=== PATIENT | male | born 1980 | race Two or more races ===

== ENCOUNTER 2020-10-25 13:05 | Outpatient (REF) | payer BC, SELFPAY | END 2020-10-25 13:06 | disposition home or self-care (01) | LOC: HO.LAB 13:05 | PROVIDERS: Visit Provider Internal Medicine | DX: Z20.828 Contact with and (suspected) exposure to other viral communicable diseases (principal) | CPT/HCPCS: C9803; U0003 ==

== ENCOUNTER 2023-05-09 13:30 | Emergency (ER) | payer BC, SELFPAY ==
--- NOTE | ~2023-05-09 | CT_ITS ---
EXAMINATION: CT ABDOMEN AND PELVIS WITHOUT CONTRAST CLINICAL INFORMATION: Left costovertebral angle tenderness COMPARISON: None available. TECHNIQUE: Multidetector volumetric imaging was performed from the superior aspect of the liver through the pubic symphysis. Sagittal and coronal reformatted images were obtained on the technologist's workstation. This CT examination was performed using dose optimization techniques as appropriate, variously including the following: *Automated exposure control *Adjustment of mA and/or kV according to patient size (this includes techniques or standardized protocols for targeted exams where dose is matched to indication/reason for exam; i.e. extremities or head) *Use of iterative reconstruction technique DLP: 844 mGy-cm FINDINGS: LUNG BASES: The visualized lung bases are unremarkable. LIVER, GALLBLADDER, AND BILIARY TREE: Hepatic fatty infiltration with focal fatty sparing near the gallbladder fossa. The gallbladder is unremarkable with no evidence of radiopaque gallstones, gallbladder wall thickening, or obvious pericholecystic inflammatory changes. PANCREAS: Unremarkable. SPLEEN: Unremarkable. ADRENAL GLANDS: Unremarkable. KIDNEYS AND URETERS: Multiple bilateral renal stones. Left hydroureteronephrosis and perinephric/periureteral infiltration secondary to a left distal ureteral/UVJ stone measuring 5 mm. BLADDER: Unremarkable. GASTROINTESTINAL TRACT: Distal ileum and appendix. No colonic inflammatory changes. Small hiatal hernia. No small bowel obstructive process or abnormal omental thickening. ABDOMINAL WALL: Small fatty inguinal hernias. Small fatty umbilical hernia. LYMPH NODES: Small periportal and retroperitoneal nodes without suspicious enlargement. VASCULAR: Unremarkable. PELVIC VISCERA: Unremarkable. OSSEOUS STRUCTURES: No compression fractures. Facet arthrosis. Minimal spondylitic change. Scattered sclerotic foci of bone, largest in the medial right ilium at 2 cm possibly reflecting bone islands. CT/CT abdomen pelvis wo IV con IMPRESSION: Left-sided obstructive uropathy, secondary to distal left ureteral/UVJ stone. Bilateral nephrolithiasis. Other incidental findings as noted above.
[2023-05-09 14:03] VITALS: BP 152/88; PULSE 70; RESP 16; TEMP 36.6; O2SAT 98; BMI 31.6
--- NOTE | 2023-05-09 14:03 | ED.ABDPAIN ---
HPI - Abdominal Pain General Chief Complaint: Abdominal Pain Stated Complaint: Stomach Pain Time Seen by Provider: 05/09/23 16:33 Source: patient Mode of arrival: ambulatory Limitations: no limitations History of Present Illness HPI narrative: 42 yo male with no know past medical history presents to the ER with L abdominal pain radiating to L back w/urinary retention that started at 6 am. He reported that his pain was an 8/10. He reports urinating at around 1-1:30pm and reports that his pain had decreased. He stated that he was nauseous prior to arrival but has subsided. MD elicited complaint: abdominal pain and flank pain Pertinent past history: none Onset (ago): hour(s) Pain Consistency: constant Location: none Severity: moderate Quality: stabbing and sharp Radiation: LUQ and L flank Migration to: L flank Exacerbating factors: nothing Relieving factors: nothing Associated symptoms: nausea Treatments prior to arrival: NSAIDs Related Data Previous Rx's Medication Instructions Recorded naproxen 500 mg tablet 500 mg PO BID PRN pain #20 tabs 05/09/23 tamsulosin 0.4 mg capsule (Flomax) 0.4 mg PO DAILY #14 caps 05/09/23 Allergies Allergy/AdvReac Type Severity Reaction Status Date / Time No Known Allergies Allergy Unverified 08/05/20 17:10 Review of Systems Review of Systems Yes all other systems are reviewed and are negative [facility] Social History Social History Smoked in Last 30 Days: Yes Use of substances other than those prescribed or required for medical reasons: No Advance Directives: No Advance Directives Information Provided: Yes Physical Exam ED Vital Signs: Vital Signs - 24 hr 05/09/23 14:03 05/09/23 17:36 Temperature 97.9 F 98.2 F Pulse Rate 70 63 Respiratory Rate 16 16 Blood Pressure 152/88 H 145/90 H Pulse Oximetry 98 97 Oxygen Delivery Method Room Air Room Air BMI result Body Mass Index 31.6 Appearance: Alert. Oriented X3. No acute distress. Head: normocephalic, atraumatic. Eyes: Pupils equal, round and reactive to light. ENT: Pharynx normal. No tonsillar swelling or exudate. Neck: Normal inspection. Neck supple. CVS: Normal heart rate and rhythm. Pulses normal. Respiratory: No respiratory distress. Breath sounds normal. Abdomen: Soft and nontender. +BS x4. Left CVA tenderness Skin: Skin warm and dry. Normal skin color. Normal skin turgor. No rashes. Extremities: No lower extremity edema. No joint swelling. Neuro/psych: Oriented X 3. No motor deficit. No sensory deficit. CN II-XII intact. Normal speech and cognition. Course Course Course Narrative: RME: 42yo M w/no sig PMHx c/o L abdominal pain radiating to L back w/urinary retention/decreased urge & nausea x last night. denies fever, emesis +L CVAT and LUQ ttp, no rebound/guarding Labs, UA, CTAP ordered Full HPI, ROS and PE to be performed by primary ED provider. Medical Decision Making Medical Decision Making [facility] Narrative: 42 yo male with no know past medical history presents to the ER with L abdominal pain radiating to L back w/urinary retention that started at 6 am. Physical exam demonstrated CVA tenderness on the left flank on first evaluation with LUQ tenderness. He reports urinating at around [id number] and reports his pain has decreased. CT scan demonstrated bilateral nephrolithiasis with a 5 mm stone at the left distal ureteral/UVJ. Plan to give IV fluids, analgesics, and prednisone for inflammation. 18:65 - upon re-evaluation patient's symptoms completely resolved. he most likely passed the stone in the ER. will d/c home with flomax and PRN naproxen along w/ urology follow up. results, dx and tx d/w patient and all questions were answered Differential Diagnosis Differential Diagnoses: The differential diagnosis associated with the presentation includes nephrolithiasis, pyelonephritis, diverticulitis, obstructive uropathy Admission/Observation Consideration of admission/observation: Escalation of care including admission/observation considered considered admission given size w/ hydro, decreased UOP however patients symptoms improved and he was able to urinate, likely passed the stone Lab Data [facility] Lab Attestation statement: I reviewed the patient's lab results. Labs demonstrates mild leukocytosis with left shit. 05/09/23 14:33 05/09/23 14:33 Labs: Lab Results 05/09/23 05/09/23 05/09/23 Range/Units 14:33 14:33 17:42 WBC 11.8 H (4.8-10.8) X10*3/uL RBC 5.67 (4.60-5.80) X10*6/uL Hgb 16.6 (14.0-18.0) g/dl Hct 49.4 (42.0-52.0) % MCV 87.1 (80.0-98.0) fL MCH 29.3 (27.0-33.0) pg MCHC 33.6 (31.0-36.0) g/dl RDW 12.5 (11.0-16.0) % Plt Count 188 (160-400) X10*3/uL MPV 10.7 (9.4-12.4) fL Immature Gran % (Auto) 0.3 (0.0-0.4) % Neut % (Auto) 86.1 H (45-73) % Lymph % (Auto) 9.2 L (20-40) % [place] % (Auto) 4.1 (2-11) % Eos % (Auto) 0.2 (0-4) % Baso % (Auto) 0.1 (0-2) % Lymph # (Auto) 1.1 L (1.2-4.9) X10*3/uL [place] # (Auto) 0.5 (0.1-1.2) X10*3/uL Eos # (Auto) 0.0 (0.0-0.4) X10*3/uL Baso # (Auto) 0.0 (0.0-0.2) X10*3/uL Abs Immat Gran (auto) 0.04 H (0.00-0.03) X10*3/uL Absolute Neuts (auto) 10.1 H (2.0-8.3) x10*3/uL Absolute Nucleated RBC 0.000 (0.0-0.012) X10*3/uL Nucleated RBC % (auto) 0.0 (0.0-0.2) /100WBC Sodium 143 (135-145) mmol/L Potassium 4.3 (3.3-5.1) mmol/L Chloride 107 (96-108) mmol/L Carbon Dioxide 26 (22-29) mmol/L Anion Gap 14 (12-20) BUN 11 (9-16) mg/dL Creatinine 1.00 (0.5-1.4) mg/dL Estim Creat Clear Calc 116.3 Estimated GFR > 60 Random Glucose 118 H (60-115) mg/dL Calcium 10.1 (8.4-10.2) mg/dL Magnesium 1.9 (1.6-2.6) mg/dL Total Bilirubin 1.6 H (0.0-1.0) mg/dL Direct Bilirubin 0.4 (0.0-0.5) mg/dL AST 38 H (5-37) U/L ALT 54 H (0-40) U/L Alkaline Phosphatase 110 (39-117) U/L Total Protein 8.8 H (6.5-8.0) g/dL Albumin 4.9 (3.5-5.0) g/dL Lipase 60 (8-78) U/L Urine Color Yellow Urine Appearance Clear Urine pH 5.5 (5.0-9.0) Ur Specific [place] 1.020 (1.005-1.025) Urine Protein Trace (Neg-Trace) mg/dL Urine Glucose (UA) Negative (Negative) mg/dL Urine Ketones Trace (Negative) mg/dL Urine Blood Moderate (2+) H (Negative) Urine Nitrite Negative (Negative) Ur Leukocyte Esterase Small (1+) H (Negative) Urine RBC 3-5 H (0-2) /HPF Urine WBC 6-10 H (0-5) /HPF Ur Squamous Epith Cells 0-2 (0-2) /HPF Urine Bacteria None Seen (None Seen) Hyaline Casts 6-10 (0-2) /LPF Independent Interpretation I performed an independent interpretation of an: CT Scan Interpretation: I have reviewed the CT scan and agree with the radiologist reading. Radiology Impression Radiologist Impression: CT/CT abdomen pelvis wo IV con IMPRESSION: Left-sided obstructive uropathy, secondary to distal left ureteral/UVJ stone. Bilateral nephrolithiasis. KIDNEYS AND URETERS: Multiple bilateral renal stones. Left hydroureteronephrosis and perinephric/periureteral infiltration secondary to a left distal ureteral/UVJ stone measuring 5 mm. Prescription Management I considered prescription management with: Pain Medication and Other (alpha marco) Medications Administered Discontinued Medications Generic Name Dose Route Start Last Admin Trade Name Freq PRN Reason Stop Dose Admin Sodium Chloride 1,000 mls @ 999 mls/hr 05/09/23 16:45 05/09/23 17:30 Ns IVCONT 05/09/23 17:45 999 mls/hr .Q1H1M ONI Administration Ketorolac Tromethamine 30 mg 05/09/23 16:35 05/09/23 17:34 Ketorolac Tromethamine 30 Mg/Ml Vial IVPUSH 05/09/23 16:36 30 mg ONCE ONE Administration Prednisone 40 mg 05/09/23 16:35 05/09/23 17:33 Prednisone 20 Mg Tablet PO 05/09/23 16:36 40 mg ONCE ONE Administration Tamsulosin HCl 0.4 mg 05/09/23 16:35 05/09/23 17:33 Tamsulosin Hcl 0.4 Mg Capsule PO 05/09/23 16:36 0.4 mg ONCE ONE Administration Critical Care Time Critical Care Time Critical Care Time: No Discharge Plan Discharge Clinical Impression: Hydronephrosis with ureteral calculus Patient Disposition: Home, Self-Care Instructions: Ureteral Stones (ED) Additional Instructions: Your CT scan today showed kidney stones - you most likely already passes the stone that was causing your pain Take the prescribed medications as directed Follow up with Urology - call for an appointment, name and number below Drink plenty of fluids If you develop new or worsening symptoms call 911 or come back to the ER for further evaluation. Prescriptions: New naproxen 500 mg tablet 500 mg PO BID PRN (Reason: pain) Qty: 20 0RF tamsulosin [Flomax] 0.4 mg capsule 0.4 mg PO DAILY Qty: 14 0RF Referrals: [facility] [Provider Group] (CT/CT abdomen pelvis wo IV con IMPRESSION: Left-sided obstructive uropathy, secondary to distal left ureteral/UVJ stone. Bilateral nephrolithiasis.)
[2023-05-09 14:38] LABS: MANUAL DIFF FLAG NO
[2023-05-09 14:43] LABS: Basophils Percent Auto 0.1 % (0-2); Eosinophils Percent Auto 0.2 % (0-4); Hematocrit 49.4 % (42.0-52.0); Hemoglobin 16.6 g/dl (14.0-18.0); Imm Gran Abs Auto 0.04 X10*3/uL (0.00-0.03); Imm Gran Pct Auto 0.3 % (0.0-0.4); Lymphocytes Absolute Auto 1.1 X10*3/uL (1.2-4.9); Lymphocytes Percent Auto 9.2 % (20-40); Mean Corpuscular HGB Conc 33.6 g/dl (31.0-36.0); Mean Corpuscular Hemoglobin 29.3 pg (27.0-33.0); Mean Corpuscular Volume 87.1 fL (80.0-98.0); Mean Platelet Volume 10.7 fL (9.4-12.4); Monocytes Absolute Auto 0.5 X10*3/uL (0.1-1.2); Monocytes Percent Auto 4.1 % (2-11); Neutrophils Absolute Auto 10.1 x10*3/uL (2.0-8.3); Neutrophils Percent Auto 86.1 % (45-73); Platelet Count 188 X10*3/uL (160-400); Red Blood Count 5.67 X10*6/uL (4.60-5.80); Red Cell Distribution Width 12.5 % (11.0-16.0); White Blood Count 11.8 X10*3/uL (4.8-10.8)
[2023-05-09 15:00] LABS: Alanine Aminotransferase 54 U/L (0-40); Albumin Level 4.9 g/dL (3.5-5.0); Alkaline Phosphatase 110 U/L (39-117); Anion Gap 14 (12-20); Aspartate Amino Transferase 38 U/L (5-37); Bilirubin Direct 0.4 mg/dL (0.0-0.5); Bilirubin Total 1.6 mg/dL (0.0-1.0); Blood Urea Nitrogen 11 mg/dL (9-16); Calcium 10.1 mg/dL (8.4-10.2); Carbon Dioxide 26 mmol/L (22-29); Chloride 107 mmol/L (96-108); Creatinine Clr Calc Pharmacy 116.3; Estimated Glomerular Filt Rate > 60; Glucose Random 118 mg/dL (60-115); Lipase 60 U/L (8-78); Magnesium 1.9 mg/dL (1.6-2.6); Potassium 4.3 mmol/L (3.3-5.1); Sodium 143 mmol/L (135-145); Total Protein 8.8 g/dL (6.5-8.0)
[2023-05-09] MEDS: 0.9 % Sodium Chloride 1,000 ML 999 ML IVCONT (17:30)
[2023-05-09] MEDS: Tamsulosin HCL 0.4 MG CAPSULE PO (17:33)
[2023-05-09] MEDS: predniSONE 20 MG TABLET 40 MG PO (17:33)
[2023-05-09] MEDS: Ketorolac Tromethamine 30 MG/ML VIAL IVPUSH (17:34)
[2023-05-09 17:36] VITALS: BP 145/90; PULSE 63; RESP 16; TEMP 36.8; O2SAT 97
[2023-05-09 17:52] LABS: Appearance Urine Clear; Color Urine Yellow; Glucose Urine UA Negative (Negative); Leukocyte Esterase Urine Small (1+) (Negative); Nitrite Urine Negative (Negative); PH 5.5 (5.0-9.0); UMIC TRIGGER UACC YES; Urine Blood Moderate (2+) (Negative); Urine Ketones Trace mg/dL (Negative); Urine Protein Trace mg/dL (Neg-Trace)
[2023-05-09 18:33] LABS: Bacteria Urine None Seen (None Seen); Squamous Epithelial Cell Urine 0-2 /HPF (0-2); UACC Culture Trigger YES
[2023-05-09 18:52] VITALS: BP 154/84; PULSE 69; RESP 16; TEMP 36.7; O2SAT 95
== END 2023-05-09 19:11 | disposition home or self-care (01) ==
PROVIDERS: Physician Assistant; Emergency Provider Emergency Medicine Emergency Medical Services
DX: N13.2 Hydronephrosis with renal and ureteral calculous obstruction (principal)
CPT/HCPCS: 36415; 51798; 74176; 80048; 80076; 81001; 83690; 83735; 85025; 87086; 96361; 96374; 99284; J1885

== ENCOUNTER 2023-05-12 05:16 | Emergency (ER) | payer BC, SELFPAY ==
[2023-05-12 05:29] VITALS: BP 141/80; PULSE 79; RESP 16; TEMP 37; O2SAT 97; BMI 31.6
[2023-05-12 05:49] LABS: Basophils Percent Auto 0.1 % (0-2); Eosinophils Percent Auto 0.2 % (0-4); Hematocrit 43.5 % (42.0-52.0); Hemoglobin 14.7 g/dl (14.0-18.0); Imm Gran Abs Auto 0.02 X10*3/uL (0.00-0.03); Imm Gran Pct Auto 0.2 % (0.0-0.4); Lymphocytes Percent Auto 8.8 % (20-40); MANUAL DIFF FLAG NO; Mean Corpuscular HGB Conc 33.8 g/dl (31.0-36.0); Mean Corpuscular Hemoglobin 29.4 pg (27.0-33.0); Mean Platelet Volume 10.6 fL (9.4-12.4); Monocytes Absolute Auto 0.9 X10*3/uL (0.1-1.2); Monocytes Percent Auto 7.4 % (2-11); Neutrophils Absolute Auto 9.7 x10*3/uL (2.0-8.3); Neutrophils Percent Auto 83.3 % (45-73); Platelet Count 165 X10*3/uL (160-400); Red Cell Distribution Width 12.5 % (11.0-16.0); White Blood Count 11.6 X10*3/uL (4.8-10.8)
[2023-05-12 06:02] LABS: Anion Gap 13 (12-20); Blood Urea Nitrogen 14 mg/dL (9-16); Calcium 9.5 mg/dL (8.4-10.2); Carbon Dioxide 28 mmol/L (22-29); Chloride 107 mmol/L (96-108); Creatinine Clr Calc Pharmacy 96.8; Estimated Glomerular Filt Rate > 60; Glucose Random 135 mg/dL (60-115); Potassium 3.8 mmol/L (3.3-5.1); Sodium 144 mmol/L (135-145)
--- NOTE | 2023-05-12 07:15 | ED.ABDPAIN ---
HPI - Abdominal Pain General Chief Complaint: Abdominal Pain Stated Complaint: Kidney Stones? Time Seen by Provider: 05/12/23 07:10 Source: patient Mode of arrival: ambulatory Limitations: no limitations History of Present Illness HPI narrative: 6-year-old male with no known past medical history presented to ED for evaluation of left lower quadrant abdominal pain the pain started 3 days ago pain is constant but waxes and weans mostly to the left lower quadrant area radiates to rid the left flank area, patient was seen in the emergency department 3 days ago and diagnosed with 5 mm stone in the left distal ureter patient was sent home on naproxen and Flomax patient has an appointment with urologist in a few weeks returned today for worsening of the pain and vomiting several times before coming to the ED. No fever, no chills. Related Data Previous Rx's Medication Instructions Recorded naproxen 500 mg tablet 500 mg PO BID PRN pain #20 tabs 05/09/23 tamsulosin 0.4 mg capsule (Flomax) 0.4 mg PO DAILY #14 caps 05/09/23 levofloxacin 750 mg tablet 750 mg PO DAILY #7 tabs 05/12/23 oxycodone 5 mg tablet 5 mg PO BID PRN pain #10 tabs 05/12/23 prednisone 20 mg tablet 20 mg PO BID #10 tabs 05/12/23 Allergies Allergy/AdvReac Type Severity Reaction Status Date / Time No Known Allergies Allergy Unverified 08/05/20 17:10 Review of Systems Review of Systems All other systems are reviewed and are negative Constitutional: Reports as per HPI and Reports no additional constitutional complaints Eyes: Reports as per HPI and Reports no additional eye complaints Reports system reviewed and no additional complaints, except as documented Cardiovascular: Reports as per HPI and Reports no additional cardiovascular complaints Respiratory: Reports as per HPI and Reports no additional respiratory complaints Gastrointestinal: Reports as per HPI and Reports no additional gastrointestinal complaints Genitourinary: Reports no additional female genitourinary complaints Musculoskeletal: Reports no additional musculoskeletal complaints Skin/Breast: Reports system reviewed and no additional complaints, except as docu Psychiatric: Reports no additional psychiatric complaints Endocrine: Reports no additional endocrine complaints Hematologic/Lymphatic: Reports no additional hematologic/lymphatic complaints Allergic/Immunologic: Reports no additional allergic/immunologic complaints Reports system reviewed and no additional complaints, except as documented and Reports Abnormal speech present [facility] Social History Social History Advance Directives: No Advance Directives Information Provided: No Physical Exam ED Vital Signs: Vital Signs - 24 hr 05/12/23 05:29 05/12/23 08:34 05/12/23 10:07 Temperature 98.6 F 98.0 F 97.9 F Pulse Rate 79 79 73 Respiratory Rate 16 16 16 Blood Pressure 141/80 H 136/77 135/85 Pulse Oximetry 97 97 97 Oxygen Delivery Method Room Air Room Air Room Air BMI result Body Mass Index 31.6 Vital signs have been reviewed as appeared to be correct. Blood pressure normal. Heart rate normal. Respiration rate normal. Temperature normal. Oxygen saturation normal. Appearance: Alert. Oriented X3. No acute distress. Head: Normal external exam. Normocephalic. Atraumatic. No Yan signs noted. No raccoon eyes noted Eyes: PERRLA. EOMI. Conjunctiva and sclera normal. Eyelids normal. ENT: TM's Normal. Pharynx normal. Uvula midline. Moist mucous membranes. No trismus noted. No drooling noted. No muffled voice noted. Neck: Normal inspection. Neck supple. FROM. No adenopathy. Thyroid Normal. No meningeal signs. No neck mass noted. CVS: Normal heart rate and rhythm. Heart sound normal. No murmurs noted. Pulses normal throughout. Respiratory: No respiratory distress. Painless inspiration. Breath sounds normal. No wheezes/rales/rhonchi noted. Chest nontender. No accessory muscle usage noted or decreased air movement noted. Abdomen: Left lower quadrant tenderness, no guarding, no rebound tenderness. Bowel sounds normal in all 4 quadrants. No distention noted. No organomegaly noted. No visible injury noted. Back: L CVA tenderness. Full range of motion noted. Skin: Skin warm and dry. Normal skin color. Normal skin turgor. No rashes/lesions/lacerations noted. Extremities: No lower extremity edema. Extremities exhibit normal range of motion. Extremities nontender. Neuro: Oriented X 3. Cranial nerve exam: II-XII are grossly intact No motor deficit. No sensory deficit. Reflexes normal. Course Course Course Narrative: 42-year-old male with a 5 mm left UVJ. Naproxen is not helping patient's pain patient was given oxycodone in the ED which is helping the pain, will start the patient on short course of prednisone to help patient's symptoms, continue with Flomax, start the patient on antibiotic for UTI. Medical Decision Making Differential Diagnosis Differential Diagnoses: The differential diagnosis associated with the presentation includes (UTI, pain control, electrolyte abnormalities, renal insufficiency, severe anemia.) Admission/Observation Consideration of admission/observation: Escalation of care including admission/observation considered Lab Data MDM Lab Attestation statement: I reviewed the patient's lab results. 05/12/23 05:44 05/12/23 05:44 Labs: Lab Results 05/12/23 05/12/23 05/12/23 Range/Units 05:44 05:44 08:37 WBC 11.6 H (4.8-10.8) X10*3/uL RBC 5.00 (4.60-5.80) X10*6/uL Hgb 14.7 (14.0-18.0) g/dl Hct 43.5 (42.0-52.0) % MCV 87.0 (80.0-98.0) fL MCH 29.4 (27.0-33.0) pg MCHC 33.8 (31.0-36.0) g/dl RDW 12.5 (11.0-16.0) % Plt Count 165 (160-400) X10*3/uL MPV 10.6 (9.4-12.4) fL Immature Gran % (Auto) 0.2 (0.0-0.4) % Neut % (Auto) 83.3 H (45-73) % Lymph % (Auto) 8.8 L (20-40) % [place] % (Auto) 7.4 (2-11) % Eos % (Auto) 0.2 (0-4) % Baso % (Auto) 0.1 (0-2) % Lymph # (Auto) 1.0 L (1.2-4.9) X10*3/uL [place] # (Auto) 0.9 (0.1-1.2) X10*3/uL Eos # (Auto) 0.0 (0.0-0.4) X10*3/uL Baso # (Auto) 0.0 (0.0-0.2) X10*3/uL Abs Immat Gran (auto) 0.02 (0.00-0.03) X10*3/uL Absolute Neuts (auto) 9.7 H (2.0-8.3) x10*3/uL Absolute Nucleated RBC 0.000 (0.0-0.012) X10*3/uL Nucleated RBC % (auto) 0.0 (0.0-0.2) /100WBC Sodium 144 (135-145) mmol/L Potassium 3.8 (3.3-5.1) mmol/L Chloride 107 (96-108) mmol/L Carbon Dioxide 28 (22-29) mmol/L Anion Gap 13 (12-20) BUN 14 (9-16) mg/dL Creatinine 1.20 (0.5-1.4) mg/dL Estim Creat Clear Calc 96.8 Estimated GFR > 60 Random Glucose 135 H (60-115) mg/dL Calcium 9.5 (8.4-10.2) mg/dL Urine Color Yellow Urine Appearance Cloudy Urine pH 6.0 (5.0-9.0) Ur Specific [place] 1.025 (1.005-1.025) Urine Protein 30 (1+) H (Neg-Trace) mg/dL Urine Glucose (UA) Negative (Negative) mg/dL Urine Ketones Trace (Negative) mg/dL Urine Blood Large (3+) H (Negative) Urine Nitrite Negative (Negative) Ur Leukocyte Esterase Moderate (2+) H (Negative) Urine RBC 6-10 H (0-2) /HPF Urine WBC 21-50 H (0-5) /HPF Ur Squamous Epith Cells 0-2 (0-2) /HPF Urine Bacteria Trace (None Seen) Hyaline Casts 3-5 (0-2) /LPF Medications Administered Discontinued Medications Generic Name Dose Route Start Last Admin Trade Name Freq PRN Reason Stop Dose Admin Levofloxacin 750 mg 05/12/23 09:19 05/12/23 10:10 Levofloxacin 750 Mg Tablet PO 05/12/23 09:20 750 mg ONCE ONE Administration Ondansetron HCl 4 mg 05/12/23 07:21 05/12/23 10:09 Ondansetron Odt 4 Mg Tab.Rapdis TRANSLINGU 05/12/23 07:22 4 mg ONCE ONE Administration Oxycodone HCl 5 mg 05/12/23 07:21 05/12/23 10:09 Oxycodone Hcl Immed Release 5 Mg Tablet PO 05/12/23 07:22 5 mg ONCE ONE Administration Prednisone 40 mg 05/12/23 07:21 05/12/23 10:10 Prednisone 20 Mg Tablet PO 05/12/23 07:22 40 mg ONCE ONE Administration Discharge Plan Discharge Clinical Impression: Calculus of kidney, Renal colic Patient Disposition: Home, Self-Care Instructions: Renal Colic (ED) Prescriptions: New oxycodone 5 mg tablet 5 mg PO BID PRN (Reason: pain) Qty: 10 0RF Rx Instructions: Partial Fill upon patient request. prednisone 20 mg tablet 20 mg PO BID Qty: 10 0RF levofloxacin 750 mg tablet 750 mg PO DAILY Qty: 7 0RF No Action naproxen 500 mg tablet 500 mg PO BID PRN (Reason: pain) Qty: 20 0RF tamsulosin [Flomax] 0.4 mg capsule 0.4 mg PO DAILY Qty: 14 0RF Referrals: Onur Mcfadden MD [Physician] -
[2023-05-12 08:34] VITALS: BP 136/77; PULSE 79; RESP 16; TEMP 36.7; O2SAT 97
[2023-05-12 08:43] LABS: Appearance Urine Cloudy; Color Urine Yellow; Glucose Urine UA Negative (Negative); Leukocyte Esterase Urine Moderate (2+) (Negative); Nitrite Urine Negative (Negative); Specific Gravity - Urine 1.025 (1.005-1.025); UMIC TRIGGER UACC YES; Urine Blood Large (3+) (Negative); Urine Ketones Trace mg/dL (Negative); Urine Protein 30 (1+) mg/dL (Neg-Trace)
[2023-05-12 08:51] LABS: Bacteria Urine Trace (None Seen); Squamous Epithelial Cell Urine 0-2 /HPF (0-2); UACC Culture Trigger YES; WBC Urine 21-50 /HPF (0-5)
[2023-05-12 10:07] VITALS: BP 135/85; PULSE 73; RESP 16; TEMP 36.6; O2SAT 97
[2023-05-12] MEDS: Ondansetron ODT 4 MG TAB.RAPDIS TRANSLINGU (10:09)
[2023-05-12] MEDS: oxyCODONE HCl Immed Release 5 MG TABLET PO (10:09)
[2023-05-12] MEDS: levoFLOXacin 750 MG TABLET PO (10:10)
[2023-05-12] MEDS: predniSONE 20 MG TABLET 40 MG PO (10:10)
== END 2023-05-12 11:52 | disposition home or self-care (01) ==
PROVIDERS: Emergency Provider Emergency Medicine
DX: N20.0 Calculus of kidney (principal); N23 Unspecified renal colic; Z79.899 Other long term (current) drug therapy
CPT/HCPCS: 36415; 80048; 81001; 85025; 87086; 99283

== ENCOUNTER 2023-06-08 09:51 | Outpatient (AMB) | payer BC, SELFPAY ==
--- NOTE | 2023-06-08 09:52 | MHC.OFFVIS ---
Intake Intake Visit Reasons: nephrolithiasis Intake Note: New Patient presents for nephrolithiasis Urology Medications: none Blood Thinner: none Event Staff Required: No Accompanied by: Self / Same As Patient Allergies No Known Allergies Allergy (Unverified 06/08/23 10:26) Medication List - Last Reconciled 06/08/23 by SKIP Amanda pyridoxine (vitamin B6) 100 mg PO DAILY 90 days HPI HPI Comments History of Present Illness Details Terence is a very pleasant 43-year-old male patient of Dr. Parada. He presents to the office today as a new patient for nephrolithiasis. In discussion with the patient today he reports seeking emergency room care approximately 1 month ago for left-sided flank pain radiating to his abdomen. In review of patient's chart it appears CT was obtained and these results reviewed with the patient today. Multiple bilateral renal stones. Left hydroureteronephrosis and perinephric/periureteral infiltration secondary to a left distal ureteral/UVJ stone measuring 5 mm. The bladder is unremarkable. When asked patient reports pain has since subsided. He reports pain had subsided approximately 1 week after ER visit. He reports having urinated more than one stone however did not obtain them. He denies any previous history of nephrolithiasis. He denies urinary urgency, urinary frequency, incontinence, nocturia, hematuria, dysuria, foul smelling urine, changes to urinary stream, flank pain, fever, and or chills. He is happy with his current voiding parameters. In office urinalysis results reviewed with the patient today. Microscopic hematuria noted. Discussed potential causes for microscopic hematuria. When asked patient does report a smoking history for over 20 years. However he does deny any known chemical exposure. He otherwise denies any issues or concerns at this time. Review of Systems Const All systems reviewed & are unremarkable except as noted in HPI and below Reports no additional complaints Eyes Reports no additional complaints ENT Reports no additional complaints Card Reports no additional complaints Resp Reports no additional complaints GI Reports no additional complaints Reports as per HPI Musc Reports no additional complaints Neuro Reports no additional complaints Psych Reports no additional complaints Endo Reports no additional complaints Levi/Lymph Reports no additional complaints Aller/Immun Reports no additional complaints Physical Exam Const General: cooperative, healthy appearing, comfortable, no acute distress, well developed, alert and awake Orientation/consciousness: patient oriented x3 Limitations: no limitations HEENT Head: Yes normal to inspection, Yes normocephalic and Yes atraumatic Ears: hearing grossly normal bilaterally Eyes General: appearance normal, both eyes and all related structures Neck Neck: Yes normal visual inspection and Yes trachea midline Chest Chest palpation & inspection: normal inspection of the chest Resp Effort & Inspection: normal respiratory effort and able to speak in complete sentences Cardio Rate: regular rate GI Inspection: Yes normal to inspection General: Yes no CVA tenderness Back/Spine/Pelvis Back: no CVA tenderness Skin General skin exam: no rashes or lesions noted Neuro General: patient oriented x3 Extrem General: Yes normal to inspection Psych Appearance: grossly normal and well kempt Mental Status: mental status grossly normal Speech and movement: Normal speech and movement present and Clear speech present Affect: normal affect Attitude: cooperative Thought process: Normal thought process present Thought content: Normal thought content present Insight: Good insight present (Psych) Judgement: Good judgement present (Psych) Results AMB Urinalysis, Automated UA Leukoctes 0 Kira/uL Last Edit by [employer] on 06/08/23 10:06 UA Nitrite Last Edit by [employer] on 06/08/23 10:06 UA Urobilinogen 0.2 mg/dL Last Edit by [employer] on 06/08/23 10:06 UA Protein 0 mg/dL Last Edit by [employer] on 06/08/23 10:06 UA pH 6.0 Last Edit by [employer] on 06/08/23 10:06 UA Blood 200 Lloyd/uL Last Edit by [employer] on 06/08/23 10:06 UA Specific [place] 1.025 Last Edit by [employer] on 06/08/23 10:06 UA Ketone Last Edit by [employer] on 06/08/23 10:06 UA Bilirubin 0 mg/dL Last Edit by [employer] on 06/08/23 10:06 UA Glucose 0 mg/dL Last Edit by [employer] on 06/08/23 10:06 Results Reviewed Results Reviewed: Laboratory Last Values Urine pH (Auto) 6.0 06/08/23 09:55 Specific [place] (Auto) 1.025 06/08/23 09:55 Urine Protein (Auto) 0 mg/dL 06/08/23 09:55 Glucose (UA)(Auto) 0 mg/dL 06/08/23 09:55 Urine Blood (Auto) 200 Lloyd/uL 06/08/23 09:55 Urine Bilirubin (Auto) 0 mg/dL 06/08/23 09:55 Urine Urobilinogen (Auto) 0.2 mg/dL 06/08/23 09:55 Leukocyte Esterase (Auto) 0 Kira/uL 06/08/23 09:55 Date of Service: 05/09/23 EXAMINATION: CT ABDOMEN AND PELVIS WITHOUT CONTRAST? FINDINGS: LUNG BASES: The visualized lung bases are unremarkable.? LIVER, GALLBLADDER, AND BILIARY TREE: Hepatic fatty infiltration with focal fatty sparing near the gallbladder fossa. The gallbladder is unremarkable with no evidence of radiopaque gallstones, gallbladder wall thickening, or obvious pericholecystic inflammatory changes.? PANCREAS: Unremarkable.? SPLEEN: Unremarkable.? ADRENAL GLANDS: Unremarkable.? KIDNEYS AND URETERS: Multiple bilateral renal stones. Left hydroureteronephrosis and perinephric/periureteral infiltration secondary to a left distal ureteral/UVJ stone measuring 5 mm. BLADDER: Unremarkable.? GASTROINTESTINAL TRACT: Distal ileum and appendix. No colonic inflammatory changes. Small hiatal hernia. No small bowel obstructive process or abnormal omental thickening.? ABDOMINAL WALL: Small fatty inguinal hernias. Small fatty umbilical hernia.? LYMPH NODES: Small periportal and retroperitoneal nodes without suspicious enlargement. VASCULAR: Unremarkable. PELVIC VISCERA: Unremarkable.? OSSEOUS STRUCTURES: No compression fractures. Facet arthrosis. Minimal spondylitic change. Scattered sclerotic foci of bone, largest in the medial right ilium at 2 cm possibly reflecting bone islands.? IMPRESSION: Left-sided obstructive uropathy, secondary to distal left ureteral/UVJ stone. ? Bilateral nephrolithiasis. ? Other incidental findings as noted above. Assessment & Plan Assessment & Plan (1) Calculus of kidney: Code(s): N20.0 - Calculus of kidney (2) Hydronephrosis: Code(s): N13.30 - Unspecified hydronephrosis (3) Microscopic hematuria: Code(s): R31.29 - Other microscopic hematuria Plan In office urinalysis results reviewed with the patient today; will send for urine cytology. Recent CT results reviewed with the patient today; as noted above Patient denies any urological issues or concerns at this time. Will obtain renal ultrasound for further assessment evaluation; further assess resolution of hydronephrosis Discussed at length potential causes for microscopic hematuria; discussed potentially related to recently passed stone versus nicotine dependence Discussed at length importance of limiting/quitting cigarette smoking for overall health and well-being. Start vitamin B6 as discussed and prescribed. Discussed further nephrolithiasis workup with 24 hour urine collection as well as labs. Follow-up in 1-2 months with imaging to be completed prior; or sooner with any issues, concerns, and or questions Orders: Orders US renal BI Today N20.0 - Calculus of kidney Urine Cytology Today Z13.9 - Encounter for screening, unspecified AMB Urinalysis Automated Today Z13.9 - Encounter for screening, unspecified Medications: New pyridoxine (vitamin B6) 100 mg PO DAILY 90 days 90 tabs 1RF Patient Instructions: The patient had an opportunity to ask questions regarding the treatment plan. All questions were answered. Physical exam, labs, and imaging were discussed and reviewed in detail. As well as risks, benefits, and discussion of treatment choices. No major barriers to understanding were identified. The patient expressed understanding and agreement with the above treatment plan. The patient was made aware they should contact our office by phone for worsening of their current condition, the appearance of new symptoms, or with any questions or concerns. Compliance is encouraged with any medications and follow up testing that is ordered. It is a privilege to be allowed the opportunity to participate in? your urological care.? Again, if you have any questions or concerns If you have any questions or concerns please do not hesitate to contact me. The office is [phone]. This note is constructed using voice recognition software. While every effort has been made to ensure accuracy manager financial services errors may have been included. Yours sincerely, SKIP Amanda Coding Level of Care Code New Pt Level 4 (40551) Diagnoses Calculus of kidney N20.0 Hydronephrosis N13.30 Microscopic hematuria R31.29
== END 2023-06-08 10:23 | disposition home or self-care (01) ==
PROVIDERS: PCP Internal Medicine; Visit Provider Nurse Practitioner Family
DX: N20.0 Calculus of kidney (principal); N13.30 Unspecified hydronephrosis; R31.29 Other microscopic hematuria
CPT/HCPCS: 99204

== ENCOUNTER 2023-06-08 09:51 | Outpatient (REF) | payer BC, SELFPAY ==
[2023-06-08 18:54] LABS: Urine Cytology See Pathology rpt
== END 2023-06-08 09:52 | disposition home or self-care (01) ==
LOC: HO.LNP 09:51
PROVIDERS: PCP Internal Medicine; Visit Provider Nurse Practitioner Family
DX: N20.0 Calculus of kidney (principal); N13.30 Unspecified hydronephrosis; R31.29 Other microscopic hematuria
CPT/HCPCS: 88112

== ENCOUNTER 2023-07-17 07:52 | Outpatient (REF) | payer BC, SELFPAY ==
--- NOTE | ~2023-07-17 | US_ITS ---
EXAMINATION: US RETROPERITONEAL LIMITED (RENAL ONLY) CLINICAL INFORMATION: Calculus of kidney. COMPARISON: CT abdomen and pelvis 05/09/2023. TECHNIQUE: Real-time imaging of the kidneys. FINDINGS: RIGHT KIDNEY: 12.0 x 5.4 x 6.6 cm (SAG x AP x TRV). The kidney is normal in size, contour, and echogenicity. Renal cortical thickness is normal. No focal parenchymal lesions or hydronephrosis. At the lower pole, a 9 mm shadowing, nonobstructing calculus is seen. LEFT KIDNEY: 13.1 x 7.1 x 5.4 cm (SAG x AP x TRV). The kidney is normal in size, contour, and echogenicity. Renal cortical thickness is normal. No hydronephrosis. At the upper pole, a 6 mm nonobstructing calculus is seen, with twinkle artifact. At the lower pole, a 1.2 cm benign, simple cyst is seen. This requires no imaging follow-up. US/US renal BI IMPRESSION: There are nonobstructing bilateral renal calculi. No hydronephrosis is seen bilaterally.
== END 2023-07-17 07:53 | disposition home or self-care (01) ==
LOC: HO.US 07:52
PROVIDERS: PCP Internal Medicine; Visit Provider Nurse Practitioner Family
DX: N20.0 Calculus of kidney (principal)
CPT/HCPCS: 76775

== ENCOUNTER 2023-07-24 12:57 | Outpatient (AMB) | payer BC, SELFPAY ==
--- NOTE | 2023-07-24 12:59 | MHC.PC.OV ---
Vital Signs 07/24/23 13:00 07/24/23 13:34 Height 5 ft 10 in Weight 226 lb 8 oz BMI 32.5 BP 140/90 H 138/88 Blood Pressure Location Lt brachial Lt brachial Position Sitting Sitting Respiration 16 Pulse 75 Pulse Source Pulse Oximeter Pulse Oximetry (%) 97 Oxygen Delivery Method Room Air Intake Visit Reasons: New patient-requesting physical Intake Note: Patient is a new patient here to establish care for kidney stone, GERD, Asthma and elevated BP . Transferring care from [facility]. Pt needs an Ortho referral for right shoulder. Pt prefer [facility]. Ice Puller Required: No Accompanied by: Self / Same As Patient Allergies No Known Allergies Allergy (Verified 07/24/23 13:14) Medication List - Last Reconciled 07/24/23 by Archana Pike MD pyridoxine (vitamin B6) 100 mg PO DAILY 90 days Tobacco use date assessed: 07/24/23 Dental Screening Dental Screen Date: 07/24/23 Did you have a dental visit in the last 12 months?: Yes Did you have a dental problem in the last 6 months where you did not have access to dental care?: No Was dental information given to patient?: Patient has dentist HPI HPI Comments History of Present Illness Details This is a 43-year-old male with mild persistent asthma, chronic GERD and low vitamin-D that comes today to establish care. Has not use rescue inhaler in over 6 years ago. Has occasional heartburn and I will prescribe PPI as needed. Had right shoulder fracture in April 2023 and was follow by [facility]. He did not require any surgery. Has full active range of motion. Has history of low vitamin-D and low vitamin B12 that will be check. [facility] Surgical History (Updated 07/24/23 @ 13:19 by Archana Pike MD) H/O arthroscopy of left knee Family History Father Diabetic nephropathy Mother Diabetes mellitus Hepatic encephalopathy Parkinsons disease Social History (Updated 07/24/23 @ 13:22 by Archana Pike MD) Housing: House Alcohol intake: former Patient Tobacco Use Status: Never used Tobacco Tobacco use type: Cigarette e-Cigarette/Vaping Use: Never Used Substance Use Type: Marijuana service: No Current occupational status: employed Cognitive needs: No Hearing needs: No Vision needs: No Questionnaire PHQ-9 Over the last 2 weeks, how often have you been bothered by any of the following problems? 1. Little interest or pleasure in doing things: not at all 2. Feeling down, depressed, or hopeless: not at all 3. Trouble falling or staying asleep, or sleeping too much: not at all 4. Feeling tired or having little energy: not at all 5. Poor appetite or overeating: not at all 6. Feeling bad about yourself - or that you are a failure or have let yourself or your family down: not at all 7. Trouble concentrating on things, such as reading the newspaper or watching television: not at all 8. Moving or speaking so slowly that other people could have noticed. Or the opposite - being so fidgety or restless that you have been moving around a lot more than usual: not at all 9. Thoughts that you would be better off or of hurting yourself in some way: not at all Total score: 0 Depression Screening Interpretation: Negative 06563 - PHQ-9 Billing: Yes Source: Developed by Drs. Balaji Lin, Lexus Castellano, Francesco Driver and colleagues, with an educational lilliam from [employer]. Thrive Questionnaire Date Thrive assessed: 07/24/23 I am a: Patient What is your living situation today?: I have a steady place to live Within the past 12 months, did the food you bought not last and you didn't have the money to get more?: Never true Within the past 12 months, did you worry whether your food would run out before you got money to buy more?: Never true Do you have trouble paying for medicines?: No Do you have trouble getting transportation to medical appointments?: No Do you have trouble paying your heating and electricity bill?: No Do you have trouble taking care of your child, family member or friend?: No Do you have trouble with day-to-day activities such as bathing, preparing meals, shopping, managing finances, etc.?: No Are you currently unemployed and looking for a job?: No Are you interested in more education?: No Please select the resources that you would like help with: None Currently or been in a relationship where the following occur: no concerns reported AUDIT C Alcohol Use Questionnaire (AUDIT-C) 1. How often do you have a drink containing alcohol?: Never 3. How often do you have six or more drinks on one occasion?: Never Total Score: 0 Score Reviewed/Action Taken: No LEE ANN-7 AMB Questionnaire LEE ANN-7 Date LEE ANN - 7 assessed: 07/24/23 Feeling nervous, anxious, or on edge: 0 = Not at all Not being able to stop or control worryin = Not at all Worrying too much about different things: 0 = Not at all Trouble relaxin = Not at all Being so restless that it is hard to sit still: 0 = Not at all Becoming easily annoyed or irritable: 0 = Not at all Feeling afraid as if something awful might happen: 0 = Not at all Total LEE ANN-7 score (0-4 normal; 5-9 mild; 10-14 moderate; 15-21 severe): 0 Source: Developed by Drs. Balaji Lin, Lexus Castellano, Francesco Driver and colleagues, with an educational lilliam from [employer]. LEE ANN-7 Assessment Billing LEE ANN-7 Assessment Tool: LEE ANN-7 Assessment 10405 Review of Systems Const All systems reviewed & are unremarkable except as noted in HPI and below Eyes Reports no additional complaints, Denies change in vision and Denies other visual disturbances Card Denies chest pain at rest, Denies chest pain with activity, Denies edema, Denies irregular heart rhythm, Denies claudication, Denies dyspnea, Denies dyspnea on exertion, Denies orthopnea, Denies paroxysmal nocturnal dyspnea and Denies slow heart rate Resp Denies cough, Denies dyspnea and Denies dyspnea on exertion GI Denies abdominal pain, Denies change in bowel habits, Denies excessive flatus, Denies nausea and Denies vomiting Denies urinary hesitancy, Denies urinary incontinence and Denies urinary urgency Musc Denies abnormal gait, Denies atrophy, Denies deformity and Denies limited range of motion Skin/Breast Denies bleeding lesions, Denies changing lesions and Denies rash Neuro Denies abnormal gait and Denies lack of coordination Physical exam (Primary Care) Vital Signs: Last Vital Signs Pulse 75 07/24/23 13:00 Resp 16 07/24/23 13:00 BP 140/90 H 07/24/23 13:00 Pulse Ox 97 07/24/23 13:00 Oxygen Delivery Method Room Air 07/24/23 13:00 BMI result Body Mass Index 32.5 Tobacco/Smoking Status: Tobacco use Status Tobacco use date assessed 07/24/23 07/24/23 13:08 Patient Tobacco Use Status Never used Tobacco 07/24/23 13:10 Tobacco use type Cigarette 07/24/23 13:10 e-Cigarette/Vaping Use Never Used 07/24/23 13:10 PHQ-9: PHQ-9 Score PHQ-9: Total score 0 07/24/23 13:10 Depression Screening Interpretation: Negative Thrive Assessment: Date of Thrive Assessment Date Thrive assessed 07/24/23 07/24/23 13:10 Currently or been in a relationship where the following occur: no concerns reported Eyes General: appearance normal, both eyes and all related structures Eyelids: Yes eyelids normal Conjunctivae: conjunctivae normal Neck Neck: Yes normal visual inspection and Yes supple Resp Effort & Inspection: normal respiratory effort Auscultation: clear to auscultation bilaterally Cardio Jugular venous distension: no JVD Rate: regular rate Rhythm: regular rhythm Heart sounds: S1 normal heart sound present and S2 normal heart sound present Extrem General: Yes full ROM Assessment and Plan Assessment & Plan (1) Shoulder fracture, right: Code(s): S42.91XA - Fracture of right shoulder girdle, part unspecified, initial encounter for closed fracture Plan: Start physical therapy. Referred to Ortho. (2) Chronic GERD: Code(s): K21.9 - Gastro-esophageal reflux disease without esophagitis Plan: Start PPI as needed (3) Hypovitaminosis D: Code(s): E55.9 - Vitamin D deficiency, unspecified Plan: Vitamin-D levels ordered. (4) Mild persistent asthma: Code(s): J45.30 - Mild persistent asthma, uncomplicated Plan: Use rescue inhaler as needed. Orders: Orders Vitamin B12 and Folate Today E53.8 - Deficiency of other specified B group vitamins Comprehensive Perrin. Panel Fast Today K21.9 - Gastro-esophageal reflux disease without esophagitis Vitamin D 25-OH Total Today E55.9 - Vitamin D deficiency, unspecified Complete Blood Count Auto Diff Today K21.9 - Gastro-esophageal reflux disease without esophagitis PT Evaluation and Treatment Today S42.91XA - Fracture of right shoulder girdle, part unspecified, initial encounter for closed fracture Lipid Panel Today E66.9 - Obesity, unspecified Referrals Orthopedics Referral S42.91XA - Fracture of right shoulder girdle, part unspecified, initial encounter for closed fracture Medications: New nabumetone 750 mg PO BID 30 days PRN 60 tabs 2RF pain S42.91XA - Fracture of right shoulder girdle, part unspecified, initial encounter for closed fracture Ventolin HFA 90 mcg/actuation (albuterol sulfate) 2 puffs inhalation Q6H 30 days PRN 18 grams 1RF shortness of breath or wheezing NS J45.30 - Mild persistent asthma, uncomplicated omeprazole 20 mg PO DAILY 90 days 90 caps 1RF K21.9 - Gastro-esophageal reflux disease without esophagitis Coding Level of Care Code New Pt Level 4 (48646) Diagnoses Shoulder fracture, right S42.91XA Chronic GERD K21.9 Hypovitaminosis D E55.9 Mild persistent asthma J45.30 Additional Codes LEE ANN-7 Assessment Billing - LEE ANN-7 Assessment Tool: LEE ANN-7 Assessment 30946 ([id number]) Time Spent (min) 23
[2023-07-24 13:00] VITALS: BP 140/90; PULSE 75; RESP 16; O2SAT 97; BMI 32.5
[2023-07-24 13:34] VITALS: BP 138/88
== END 2023-07-24 13:33 | disposition home or self-care (01) ==
PROVIDERS: PCP Internal Medicine; Visit Provider Internal Medicine
DX: S42.91XA Fracture of right shoulder girdle, part unspecified, initial encounter for closed fracture (principal); K21.9 Gastro-esophageal reflux disease without esophagitis; E55.9 Vitamin D deficiency, unspecified; J45.30 Mild persistent asthma, uncomplicated
CPT/HCPCS: 99204

== ENCOUNTER 2023-07-30 09:25 | Outpatient (AMB) | payer BC, SELFPAY ==
--- NOTE | 2023-07-30 09:44 | MHC.OFFVIS ---
Intake Intake Visit Reasons: Nephrolithiasis- follow up/US(set) Intake Note: Patient presents for follow up nephrolithiasis/Micro Hematuria/Ultrasound (imaging 07/17/23) Urology Medications: Vitamin B6 Blood Thinner: none Director Report Required: No Accompanied by: Self / Same As Patient Allergies No Known Allergies Allergy (Verified 07/30/23 10:24) Medication List - Last Reconciled 07/30/23 by RAFAEL Amanda-ROSEMARY nabumetone 750 mg PO BID PRN 30 days omeprazole 20 mg PO DAILY 90 days pyridoxine (vitamin B6) 100 mg PO DAILY 90 days Ventolin HFA 90 mcg/actuation (albuterol sulfate) 2 puffs inhalation Q6H PRN 30 days NS HPI HPI Comments History of Present Illness Details Terence is a very pleasant 43-year-old male patient of Dr. Parada. He presents to the office today for follow-up. Of note, patient was seen approximately 6 weeks ago as a new patient for nephrolithiasis at which time a renal ultrasound was ordered for further assessment evaluation. These results reviewed with the patient today. Right kidney with no lesions or hydronephrosis. At the lower pole 9 mm shadowing nonobstructing calculus is seen. Left kidney with no lesions or hydronephrosis noted. At the upper pole 6 mm nonobstructing calculus is seen with twinkle artifact. At the lower pole of the left kidney a 1.2 cm benign simple cyst is seen. This requires no imaging follow-up per radiology report. When asked patient denies any bothersome urinary issues or concerns at this time. Discussed surveillance monitoring of nephrolithiasis verses further surgical intervention. He denies urinary urgency, urinary frequency, incontinence, nocturia, hematuria, dysuria, foul smelling urine, changes to urinary stream, flank pain, fever, and or chills. He is happy with his current voiding parameters. In office urinalysis results reviewed with the patient today. Microscopic hematuria noted. Discussed potential causes for microscopic hematuria. When asked patient does report a smoking history for over 20 years. However he does deny any known chemical exposure. He otherwise denies any issues or concerns at this time. PFSH Surgical History H/O arthroscopy of left knee Family History Father Diabetic nephropathy Mother Diabetes mellitus Hepatic encephalopathy Parkinsons disease Social History Housing: House Alcohol intake: former Patient Tobacco Use Status: Never used Tobacco Tobacco use type: Cigarette e-Cigarette/Vaping Use: Never Used Substance Use Type: Marijuana service: No Current occupational status: employed Cognitive needs: No Hearing needs: No Vision needs: No Review of Systems Const All systems reviewed & are unremarkable except as noted in HPI and below Reports no additional complaints Eyes Reports no additional complaints ENT Reports no additional complaints Card Reports no additional complaints Resp Reports no additional complaints GI Reports no additional complaints Reports as per HPI Musc Reports no additional complaints Neuro Reports no additional complaints Psych Reports no additional complaints Endo Reports no additional complaints Levi/Lymph Reports no additional complaints Aller/Immun Reports no additional complaints Physical Exam Const General: cooperative, healthy appearing, comfortable, no acute distress, well developed, alert and awake Orientation/consciousness: patient oriented x3 Limitations: no limitations HEENT Head: Yes normal to inspection, Yes normocephalic and Yes atraumatic Ears: hearing grossly normal bilaterally Eyes General: appearance normal, both eyes and all related structures Neck Neck: Yes normal visual inspection and Yes trachea midline Chest Chest palpation & inspection: normal inspection of the chest Resp Effort & Inspection: normal respiratory effort and able to speak in complete sentences Cardio Rate: regular rate GI Inspection: Yes normal to inspection General: Yes no CVA tenderness Back/Spine/Pelvis Back: no CVA tenderness Skin General skin exam: no rashes or lesions noted Neuro General: patient oriented x3 Extrem General: Yes normal to inspection Psych Appearance: grossly normal and well kempt Mental Status: mental status grossly normal Speech and movement: Normal speech and movement present and Clear speech present Affect: normal affect Attitude: cooperative Thought process: Normal thought process present Thought content: Normal thought content present Insight: Good insight present (Psych) Judgement: Good judgement present (Psych) Results AMB Urinalysis, Automated UA Leukoctes 0 Kira/uL Last Edit by Bob Tidwell on 07/30/23 09:49 UA Nitrite Last Edit by Bob Tidwell on 07/30/23 09:49 UA Urobilinogen 0.2 mg/dL Last Edit by Bob Tidwell on 07/30/23 09:49 UA Protein 0 mg/dL Last Edit by Bob Rosacornelius on 07/30/23 09:49 UA pH 6.0 Last Edit by Bob Tidwell on 07/30/23 09:49 UA Blood 200 Lloyd/uL Last Edit by Bob Tidwell on 07/30/23 09:49 UA Specific [place] 1.030 Last Edit by Bob Tidwell on 07/30/23 09:49 UA Ketone Last Edit by Bob Tidwell on 07/30/23 09:49 UA Bilirubin 0 mg/dL Last Edit by Bob Tidwell on 07/30/23 09:49 UA Glucose 0 mg/dL Last Edit by Bob Tidwell on 07/30/23 09:49 Results Reviewed Results Reviewed: Laboratory Last Values Urine pH (Auto) 6.0 07/30/23 09:45 Specific [place] (Auto) 1.030 07/30/23 09:45 Urine Protein (Auto) 0 mg/dL 07/30/23 09:45 Glucose (UA)(Auto) 0 mg/dL 07/30/23 09:45 Urine Blood (Auto) 200 Lloyd/uL 07/30/23 09:45 Urine Bilirubin (Auto) 0 mg/dL 07/30/23 09:45 Urine Urobilinogen (Auto) 0.2 mg/dL 07/30/23 09:45 Leukocyte Esterase (Auto) 0 Kira/uL 07/30/23 09:45 Date of Service: 07/17/23 EXAMINATION: US RETROPERITONEAL LIMITED (RENAL ONLY) FINDINGS: RIGHT KIDNEY: 12.0 x 5.4 x 6.6 cm (SAG x AP x TRV). The kidney is normal in size, contour, and echogenicity. Renal cortical thickness is normal. No focal parenchymal lesions or hydronephrosis. At the lower pole, a 9 mm shadowing, nonobstructing calculus is seen. LEFT KIDNEY: 13.1 x 7.1 x 5.4 cm (SAG x AP x TRV). The kidney is normal in size, contour, and echogenicity. Renal cortical thickness is normal. No hydronephrosis. At the upper pole, a 6 mm nonobstructing calculus is seen, with twinkle artifact. At the lower pole, a 1.2 cm benign, simple cyst is seen. This requires no imaging follow-up. IMPRESSION: There are nonobstructing bilateral renal calculi. No hydronephrosis is seen bilaterally. Assessment & Plan Assessment & Plan (1) Microscopic hematuria: Code(s): R31.29 - Other microscopic hematuria (2) Calculus of kidney: Code(s): N20.0 - Calculus of kidney Plan In office urinalysis results reviewed with the patient today; as noted above. Recent retroperitoneal ultrasound results reviewed with the patient today; as noted above. Discussed at length potential causes for nephrolithiasis. Discussed surveillance monitoring versus further surgical intervention of nephrolithiasis. Will obtain KUB for further assessment evaluation. Patient denies any bothersome urinary issues or concerns at this time. Discussed, educated, and stressed the importance of drinking plenty of water daily. Continue vitamin B6 as discussed and prescribed. Continue adding 1 oz of lemon juice to water daily. Follow-up in 1 month with imaging to be completed prior; or sooner with any issues, concerns, and or questions. Orders: Orders XR KUB Today N20.0 - Calculus of kidney AMB Urinalysis Automated Today Z13.9 - Encounter for screening, unspecified Urine Cytology Today R31.29 - Other microscopic hematuria Patient Instructions: The patient had an opportunity to ask questions regarding the treatment plan. All questions were answered. Physical exam, labs, and imaging were discussed and reviewed in detail. As well as risks, benefits, and discussion of treatment choices. No major barriers to understanding were identified. The patient expressed understanding and agreement with the above treatment plan. The patient was made aware they should contact our office by phone for worsening of their current condition, the appearance of new symptoms, or with any questions or concerns. Compliance is encouraged with any medications and follow up testing that is ordered. It is a privilege to be allowed the opportunity to participate in? your urological care.? Again, if you have any questions or concerns If you have any questions or concerns please do not hesitate to contact me. The office is [phone]. This note is constructed using voice recognition software. While every effort has been made to ensure accuracy ticket printer and tagger errors may have been included. Yours sincerely, SKIP Amanda Coding Level of Care Code Est Pt Level 3 (90466) Diagnoses Microscopic hematuria R31.29 Calculus of kidney N20.0
== END 2023-07-30 10:06 | disposition home or self-care (01) ==
PROVIDERS: PCP Internal Medicine; Visit Provider Nurse Practitioner Family
DX: R31.29 Other microscopic hematuria (principal); N20.0 Calculus of kidney
CPT/HCPCS: 99213

== ENCOUNTER 2023-07-30 09:25 | Outpatient (REF) | payer BC, SELFPAY ==
[2023-07-30 16:51] LABS: Urine Cytology See Pathology rpt
== END 2023-07-30 09:26 | disposition home or self-care (01) ==
LOC: HO.LNP 09:25
PROVIDERS: PCP Internal Medicine; Visit Provider Nurse Practitioner Family
DX: R31.29 Other microscopic hematuria (principal)
CPT/HCPCS: 81003; 88112

== ENCOUNTER 2023-08-04 07:58 | Outpatient (REF) | payer BC, SELFPAY ==
--- NOTE | ~2023-08-04 | XR_ITS ---
EXAMINATION: XR ABDOMEN KUB CLINICAL INDICATION: Calculus of kidney. COMPARISON: Renal ultrasound 07/17/2023. CT abdomen and pelvis 05/09/2023. TECHNIQUE: 2 AP views of the abdomen. FINDINGS: Nonobstructive bowel gas pattern. Moderate amount of stool in the colon. Visualization of the bilateral kidneys is limited due to overlying bowel. Degenerative changes in the lumbar spine. Possible, subtle 6 mm calculus redemonstrated overlying upper pole of left kidney. Previously identified right lower pole 9 mm calculus probably still present, but difficult to confirm as visualization is limited due to overlying bowel. 2.5 cm sclerotic focus overlying the right ilium was better characterized on CT scan of 05/09/2023. Additional scattered sclerotic bony lesions redemonstrated. Differential considerations include possible bone islands. Correlation with clinical exam recommended to determine further management. XR/XR KUB IMPRESSION: Possible, subtle 6 mm calculus redemonstrated overlying upper pole of left kidney. Previously identified right lower pole 9 mm calculus probably still present, but difficult to confirm as visualization is limited due to overlying bowel.
[2023-08-04 08:21] LABS: MANUAL DIFF FLAG NO
[2023-08-04 08:43] LABS: Basophils Percent Auto 0.3 % (0-2); Eosinophils Absolute Auto 0.1 X10*3/uL (0.0-0.4); Eosinophils Percent Auto 1.8 % (0-4); Hematocrit 47.8 % (42.0-52.0); Hemoglobin 16.2 g/dl (14.0-18.0); Imm Gran Abs Auto 0.01 X10*3/uL (0.00-0.03); Imm Gran Pct Auto 0.1 % (0.0-0.4); Lymphocytes Percent Auto 27.8 % (20-40); Mean Corpuscular HGB Conc 33.9 g/dl (31.0-36.0); Mean Corpuscular Hemoglobin 29.7 pg (27.0-33.0); Mean Corpuscular Volume 87.5 fL (80.0-98.0); Mean Platelet Volume 11.4 fL (9.4-12.4); Monocytes Absolute Auto 0.8 X10*3/uL (0.1-1.2); Monocytes Percent Auto 10.6 % (2-11); Neutrophils Absolute Auto 4.2 x10*3/uL (2.0-8.3); Neutrophils Percent Auto 59.4 % (45-73); Platelet Count 180 X10*3/uL (160-400); Red Blood Count 5.46 X10*6/uL (4.60-5.80); Red Cell Distribution Width 13.2 % (11.0-16.0); White Blood Count 7.1 X10*3/uL (4.8-10.8)
[2023-08-04 09:38] LABS: Alanine Aminotransferase 84 U/L (0-40); Albumin Level 4.5 g/dL (3.5-5.0); Alkaline Phosphatase 83 U/L (39-117); Anion Gap 12 (12-20); Aspartate Amino Transferase 59 U/L (5-37); Bilirubin Total 1.7 mg/dL (0.0-1.0); Blood Urea Nitrogen 10 mg/dL (9-16); Calcium 9.2 mg/dL (8.4-10.2); Carbon Dioxide 25 mmol/L (22-29); Chloride 109 mmol/L (96-108); Cholesterol 170 mg/dL (<200); Estimated Glomerular Filt Rate > 60; Glucose Fasting 102 mg/dL (60-99); HDL Cholesterol 38 mg/dL (>40); LDL Cholesterol Calculated 113 mg/dL (<100); Potassium 3.7 mmol/L (3.3-5.1); Sodium 142 mmol/L (135-145); Total Protein 7.8 g/dL (6.5-8.0); Triglycerides 97 mg/dL (<150)
[2023-08-04 09:57] LABS: Folate 13.8 ng/mL (> or = 4.0); Vitamin B12 316 pg/mL (200-900)
== END 2023-08-04 07:59 | disposition home or self-care (01) ==
LOC: HO.LAB 07:58
PROVIDERS: Absent Provider Internal Medicine; PCP Internal Medicine; Visit Provider Nurse Practitioner Family
DX: N20.0 Calculus of kidney (principal); E55.9 Vitamin D deficiency, unspecified; E53.8 Deficiency of other specified B group vitamins; E66.9 Obesity, unspecified; K21.9 Gastro-esophageal reflux disease without esophagitis
CPT/HCPCS: 36415; 74018; 80053; 80061; 82306; 82607; 82746; 85025

== ENCOUNTER 2023-08-17 15:38 | Outpatient (AMB) | payer BC, SELFPAY ==
--- NOTE | 2023-08-17 15:56 | MHC.OFFVIS ---
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 Parada. He presents to the office today for follow-up of his nephrolithiasis. Of note, patient was seen approximately 2 weeks ago at which time a KUB was ordered for further assessment evaluation. These results were reviewed with the patient today. Possible 6 mm calculus redemonstrated overlying upper pole of the left kidney. Previously identified right lower pole 9 mm calculus probably still present but difficult to confirm as visualization is limited due to overlying bowel. Previous ultrasound noting right kidney with no lesions or hydronephrosis. At the lower pole 9 mm shadowing nonobstructing calculus is seen. Left kidney with no lesions or hydronephrosis noted. At the upper pole 6 mm nonobstructing calculus is seen with twinkle artifact. At the lower pole of the left kidney a 1.2 cm benign simple cyst is seen. This requires no imaging follow-up per radiology report. When asked patient denies any bothersome urinary issues. He does however report intermittent bilateral flank pain. However, no CVA tenderness noted bilaterally on exam today. Discussed at length surveillance monitoring of nephrolithiasis verses further surgical intervention with ESWL. He denies urinary urgency, urinary frequency, incontinence, nocturia, hematuria, dysuria, foul smelling urine, changes to urinary stream, fever, and or chills. He is happy with his current voiding parameters. In office urinalysis results reviewed with the patient today. Microscopic hematuria noted. Discussed potential causes for microscopic hematuria. When asked patient does report a smoking history for over 20 years. However he does deny any known chemical exposure. He otherwise denies any issues or concerns at this time. Cytology from last office visit approximately 2 weeks ago reviewed with the patient today. Negative for high-grade urothelial carcinoma. [facility] Surgical History H/O arthroscopy of left knee Family History Father Diabetic nephropathy Mother Diabetes mellitus Hepatic encephalopathy Parkinsons disease Social History Housing: House Alcohol intake: former Patient Tobacco Use Status: Never used Tobacco Tobacco use type: Cigarette e-Cigarette/Vaping Use: Never Used Substance Use Type: Marijuana service: No Current occupational status: employed Cognitive needs: No Hearing needs: No Vision needs: No Review of Systems Const All systems reviewed & are unremarkable except as noted in HPI and below Reports no additional complaints Eyes Reports no additional complaints ENT Reports no additional complaints Card Reports no additional complaints Resp Reports no additional complaints GI Reports no additional complaints Reports as per HPI Musc Reports no additional complaints Neuro Reports no additional complaints Psych Reports no additional complaints Endo Reports no additional complaints Levi/Lymph Reports no additional complaints Aller/Immun Reports no additional complaints Physical Exam Const General: cooperative, healthy appearing, comfortable, no acute distress, well developed, alert and awake Orientation/consciousness: patient oriented x3 Limitations: no limitations HEENT Head: Yes normal to inspection, Yes normocephalic and Yes atraumatic Ears: hearing grossly normal bilaterally Eyes General: appearance normal, both eyes and all related structures Neck Neck: Yes normal visual inspection and Yes trachea midline Chest Chest palpation & inspection: normal inspection of the chest Resp Effort & Inspection: normal respiratory effort and able to speak in complete sentences Cardio Rate: regular rate GI Inspection: Yes normal to inspection General: Yes no CVA tenderness Back/Spine/Pelvis Back: no CVA tenderness Skin General skin exam: no rashes or lesions noted Neuro General: patient oriented x3 Extrem General: Yes normal to inspection Psych Appearance: grossly normal and well kempt Mental Status: mental status grossly normal Speech and movement: Normal speech and movement present and Clear speech present Affect: normal affect Attitude: cooperative Thought process: Normal thought process present Thought content: Normal thought content present Insight: Fair insight present (Psych) Judgement: Fair judgement present (Psych) Results AMB Urinalysis, Automated UA Leukoctes 0 Kira/uL Last Edit by Blue Bottle Coffeepravin Tidwell on 08/17/23 16:08 UA Nitrite Negative Last Edit by Blue Bottle Coffeepravin WebSideStorycornelius on 08/17/23 16:08 UA Urobilinogen 0.2 mg/dL Last Edit by Blue Bottle Coffeepravin Tidwell on 08/17/23 16:08 UA Protein 0 mg/dL Last Edit by Blue Bottle Coffeepravin WebSideStorycornelius on 08/17/23 16:08 UA pH 6.5 Last Edit by Blue Bottle Coffeepravin WebSideStorycornelius on 08/17/23 16:08 UA Blood 10 Lloyd/uL Last Edit by VGTelcornelius on 08/17/23 16:08 UA Specific [place] 1.015 Last Edit by VGTelcornelius on 08/17/23 16:08 UA Ketone Negative Last Edit by Blue Bottle Coffeepravin WebSideStorycornelius on 08/17/23 16:08 UA Bilirubin 0 mg/dL Last Edit by VGTelcornelius on 08/17/23 16:08 UA Glucose 0 mg/dL Last Edit by Blue Bottle Coffeepravin WebSideStorycornelius on 08/17/23 16:08 Results Reviewed Results Reviewed: Laboratory Last Values Urine pH (Auto) 6.5 08/17/23 16:02 Specific [place] (Auto) 1.015 08/17/23 16:02 Urine Protein (Auto) 0 mg/dL 08/17/23 16:02 Glucose (UA)(Auto) 0 mg/dL 08/17/23 16:02 Urine Ketones (Auto) Negative 08/17/23 16:02 Urine Blood (Auto) 10 Lloyd/uL 08/17/23 16:02 Urine Nitrite (Auto) Negative 08/17/23 16:02 Urine Bilirubin (Auto) 0 mg/dL 08/17/23 16:02 Urine Urobilinogen (Auto) 0.2 mg/dL 08/17/23 16:02 Leukocyte Esterase (Auto) 0 Kira/uL 08/17/23 16:02 Date of Service: 08/04/23 Procedure(s): XR KUB CLINICAL INDICATION: Calculus of kidney. FINDINGS: Nonobstructive bowel gas pattern. Moderate amount of stool in the colon. Visualization of the bilateral kidneys is limited due to overlying bowel. Degenerative changes in the lumbar spine. Possible, subtle 6 mm calculus redemonstrated overlying upper pole of left kidney. Previously identified right lower pole 9 mm calculus probably still present, but difficult to confirm as visualization is limited due to overlying bowel. 2.5 cm sclerotic focus overlying the right ilium was better characterized on CT scan of 05/09/2023. Additional scattered sclerotic bony lesions redemonstrated. Differential considerations include possible bone islands. Correlation with clinical exam recommended to determine further management. IMPRESSION: Possible, subtle 6 mm calculus redemonstrated overlying upper pole of left kidney. Previously identified right lower pole 9 mm calculus probably still present, but difficult to confirm as visualization is limited due to overlying bowel. Assessment & Plan Assessment & Plan (1) Bilateral renal stones: Code(s): N20.0 - Calculus of kidney Plan: Plan Extracorporeal Shock Wave Lithotripsy We discussed the nature of the decision and reasonable alternatives for performing the above surgery. Interventions include chemical dissolution, ESWL, ureteroscopy with laser lithotripsy and stent placement, PCNL. ? Options such as medical therapy were discussed. The relative uncertainties and benefits related to each alternate procedure were adequately discussed. General surgical risks including, but not limited to, pain, bleeding, infection, myocardial infarction, pulmonary embolus, deep vein thrombosis and cerebrovascular accident which may result in further hospitalization were discussed.? Full disclosure of the procedure as well as all major risks, benefits and complications were discussed including but not limited to risks of bleeding, injury to the kidney with hematoma or shakila-hematoma, failure to fragments stone, potential for ureteric obstruction from stone passage and need for secondary procedures.? There is a small long-term risk of hypertension and a question christine of diabetes.? Success rate of fragmentation and passage is approximately 70- 75%.? This is compared to the risks and benefits for ureteroscopy which has a higher success rate but is a more invasive procedure. The success rate of the procedure was discussed. Success of the procedure in the short-term does not necessarily guarantee that long-term success will be maintained. Suitable follow up will need to be maintained. The patient showed understanding of the discussion as well as the typical recovery time, and the outpatient nature of this procedure. Opportunity was given for questions. Repeat-back protocol used to confirm understanding. They wish to proceed with right ESWL (2) Renal cyst: Code(s): N28.1 - Cyst of kidney, acquired Plan In office urinalysis results reviewed with the patient today; as noted above. Discussed recent ultrasound and KUB results with the patient today; as noted above. Discussed surgical intervention versus surveillance monitoring; discussed at length risks and benefits of surgical intervention verses surveillance monitoring All questions were answered Information provided on ESWL Educated, encouraged, instructed importance of drinking plenty of water daily. Continue vitamin B6 as discussed and prescribed. Continue adding 1 oz of lemon juice to water daily. Will schedule for right-sided ESWL with Dr. Mcfadden as discussed Follow-up status post right sided ESWL per Dr. Mcfadden's order; or sooner with any issues, concerns, and or questions. Orders: Orders AMB Urinalysis Automated Today Z13.9 - Encounter for screening, unspecified Patient Instructions: The patient had an opportunity to ask questions regarding the treatment plan. All questions were answered. Physical exam, labs, and imaging were discussed and reviewed in detail. As well as risks, benefits, and discussion of treatment choices. No major barriers to understanding were identified. The patient expressed understanding and agreement with the above treatment plan. The patient was made aware they should contact our office by phone for worsening of their current condition, the appearance of new symptoms, or with any questions or concerns. Compliance is encouraged with any medications and follow up testing that is ordered. It is a privilege to be allowed the opportunity to participate in? your urological care.? Again, if you have any questions or concerns If you have any questions or concerns please do not hesitate to contact me. The office is [phone]. This note is constructed using voice recognition software. While every effort has been made to ensure accuracy ceramics artist errors may have been included. Yours sincerely, SKIP Amanda Coding Level of Care Code Est Pt Level 4 (36850) Diagnoses Bilateral renal stones N20.0 Renal cyst N28.1
== END 2023-08-17 16:18 | disposition home or self-care (01) ==
PROVIDERS: PCP Internal Medicine; Visit Provider Nurse Practitioner Family
DX: N20.0 Calculus of kidney (principal); N28.1 Cyst of kidney, acquired
CPT/HCPCS: 99214

== ENCOUNTER → 2023-08-17 15:38 | Outpatient (BNVA) | payer BC, SELFPAY | PROVIDERS: PCP Internal Medicine; Visit Provider Nurse Practitioner Family | DX: N20.0 Calculus of kidney (principal); N28.1 Cyst of kidney, acquired | CPT/HCPCS: 81003 ==

== ENCOUNTER 2023-09-05 14:00 | Outpatient (RCR) | payer BC, SELFPAY ==
--- NOTE | 2023-08-16 14:37 | MHC.PT.EP ---
[facility] [place] Office [place] Office [place] Office [address] Luis Mon [address] [phone] F: [phone] F: [phone] F: [phone] F: [phone] Physical Therapy Plan of Care Date of Evaluation: 08/16/23 Date of Surgery: Diagnosis: Shoulder fracture of R shoulder. Minimally displaced impaction fracture of anterosuperior aspect of proximal humerus with nondisplaced undersurface tear of posterior labrum. Assessment: Patient is a 43 year old R handed male who presents with s/s consistent with R shoulder fracture, pain. 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 Patient past medical history includes kidney stones and knee surgery. Current impairments include pain, posture, ROM, strength, activity tolerance and functional mobility. Functional limitations include decreased ability to sleep, lift, push, pull, carry, dress and reach behind back. Patient is motivated with good rehab potential. Skilled PT will address impairments and functional limitations in order to achieve goals. Frequency and Duration: The patient will be seen 2x/week for 5 weeks Short Term Goals: I with HEP - 2 weeks AROM flexion and scaption to 140 each - 3 weeks ER/IR WNL and pain free - 3 weeks [facility] Goals: strength 4+/5 grossly in R shoulder - 5 weeks SPADI 20/130 or better - 5 weeks pain free return to all work and daily activities - 5 weeks Treatment Plan: Modalities to reduce pain, spasms and effusion. Manual therapy to restore motion and function. Therapeutic exercise to improve strength and flexibility. Neuromuscular re-education for posture and balance. Therapeutic activities to return to functional activities of daily living. Electronically signed by: Laurent Truong, PT Please sign and return to therapist. Thank you for your referral.
--- NOTE | 2024-08-27 08:36 | MHC.PT.DC ---
[facility] [place] [facility] [place] [facility] [place] [facility] [address] Luis Mon [address] [phone] F: [phone] F: [phone] F: [phone] F: [phone] Physical Therapy Discharge Report Diagnosis: Shoulder fracture of R shoulder. Minimally displaced impaction fracture of anterosuperior aspect of proximal humerus with nondisplaced undersurface tear of posterior labrum. Date of Surgery: Date of Evaluation: 08/16/23 Date of Discharge: 09/12/23 Treatments to Date: 7 Cancellations to Date: No Shows to Date: Discharge Status: Independent with HEP Patient Elected to Stop Discharge Summary: 09/05/23: pt progressing well. IR to T7. Flexion full. Pain minimal. Follows commands and cues well. progress as tolerated. 09/03/23: pt progressing well with ROM, strength and function. no adverse reactions from above program. we have been able to progress each visit. 08/31/23: pt progressing well with skilled PT. we have been able to continue steady progression. ROM and strength improving. HEP updated today. 08/29; Pt reported fatigue after PRE's. 08/22/23: pt progressing with strength. no adverse reactions. we will continue to progress strength. update HEP NV. 08/20/23: pt progressing well so far. added strength and ROM. minor soreness to finish. we will continue to progress as tolerated. Patient is a 43 year old R handed male who presents with s/s consistent with R shoulder fracture, pain. 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 Patient past medical history includes kidney stones and knee surgery. Current impairments include pain, posture, ROM, strength, activity tolerance and functional mobility. Functional limitations include decreased ability to sleep, lift, push, pull, carry, dress and reach behind back. Patient is motivated with good rehab potential. Skilled PT will address impairments and functional limitations in order to achieve goals. Electronically signed by: Laurent Truong, PT Please sign and return to therapist. Thank you for your referral.
== END 2024-08-27 08:36 | disposition home or self-care (01) ==
LOC: HO.PTCHIC 14:00
PROVIDERS: PCP Internal Medicine; Visit Provider Internal Medicine
DX: S42.91XD Fracture of right shoulder girdle, part unspecified, subsequent encounter for fracture with routine healing (principal)
CPT/HCPCS: 97110; 97161

== ENCOUNTER 2023-10-03 07:12 | Day surgery (SDC) | payer BC, SELFPAY ==
[2023-10-01 14:56] VITALS: BMI 32.6
--- NOTE | 2023-10-02 09:50 | HO.ANESPROP2 ---
Documented by User: Karlie Collado NP 10/02/23 09:50 HPI - Anesthesia Eval Consult details Narrative: 43yo M for Left ESWL PMFSH Active Problems Active Problems: All Active Problems (Updated 10/01/23 @ 14:53 by Patt Goff RN) Renal cyst (Acute) Bilateral renal stones (Acute) Obese (Acute) Shoulder fracture, right (Acute) Mild persistent asthma (Acute) Chronic GERD (Acute) B12 deficiency (Acute) Hypovitaminosis D (Acute) Microscopic hematuria (Acute) Hydronephrosis (Acute) Past Medical History Medical History Renal stones GERD (gastroesophageal reflux disease) Asthma Family History Family History Father Diabetic nephropathy Mother Diabetes mellitus Hepatic encephalopathy Parkinsons disease Surgical History Surgical History H/O arthroscopy of left knee Social History Social History Housing: House Alcohol intake: former Patient Tobacco Use Status: Never used Tobacco Tobacco use type: Cigarette e-Cigarette/Vaping Use: Never Used Use of substances other than those prescribed or required for medical reasons: Yes Substance Use Type: Marijuana Substance Use Frequency: Daily Are you DNR?: No Advance Directives: No Advance Directives Information Provided: Yes service: No Current occupational status: employed Cognitive needs: No Hearing needs: No Vision needs: No Meds Allergies Allergy/AdvReac Type Severity Reaction Status Date / Time No Known Allergies Allergy Verified 10/03/23 07:40 Exam Exam Date and Time: October 02, 2023 0950 Height,Weight and Vital Signs: Height 5 ft 10 in Weight 102.965 kg Pertinent Lab Results Pertinent Lab Results: Laboratory Tests 08/04/23 08:18 WBC 7.1 Hgb 16.2 Hct 47.8 Plt Count 180 Sodium 142 Potassium 3.7 Chloride 109 H Carbon Dioxide 25 BUN 10 Creatinine 0.85 Assessment and Plan Assessment Anesthesia Assessment: Chart Reviewed Documented by User: Tri Dallas MD 10/03/23 08:54 PMFSH Past Medical History Medical History Renal stones GERD (gastroesophageal reflux disease) Asthma Family History Family History Father Diabetic nephropathy Mother Diabetes mellitus Hepatic encephalopathy Parkinsons disease Surgical History Surgical History H/O arthroscopy of left knee History of Problems with Anesthesia: No Social History Social History Housing: House Alcohol intake: former Patient Tobacco Use Status: Never used Tobacco Tobacco use type: Cigarette e-Cigarette/Vaping Use: Never Used Use of substances other than those prescribed or required for medical reasons: Yes Substance Use Type: Marijuana Substance Use Frequency: Daily Are you DNR?: No Advance Directives: No Advance Directives Information Provided: Yes service: No Current occupational status: employed Cognitive needs: No Hearing needs: No Vision needs: No Meds Allergies Allergy/AdvReac Type Severity Reaction Status Date / Time No Known Allergies Allergy Verified 10/03/23 07:40 Exam Airway Mallampati Class: III (full neck) TM Dist: >3cm Neck ROM: Full Loose/Missing/Broken Teeth: No Heart: RRR Lungs: CTA Assessment and Plan Assessment Anesthesia Assessment: Anesthesia Plan Discussed Final Anesthetic Review History of Problems with Anesthesia: No NPO: Yes ASA Class: II Final Preanesthetic Review: Meds/Allgs Chart Reviewed, Consent Obtained/Reviewed and Anes Risks/Benef Reviewed Patient Risk: Low Procedure Risk: Low Anesthetic Plan Anesthetic Plan: MAC: Disposition: Standard PACU
--- NOTE | ~2023-10-03 | XR_ITS ---
EXAMINATION: XR ABDOMEN KUB CLINICAL INDICATION: Right kidney stone. COMPARISON: KUB from 08/04/2023. Renal ultrasound from 07/17/2023. Abdomen CT from 05/09/2023. TECHNIQUE: AP view of the abdomen. FINDINGS: The evaluation the kidneys is quite limited due to overlying bowel gas and fecal material. There is no overt left renal stone. The region of the lower pole of the right kidney is particularly difficult to evaluate due to the overlying bowel contents. Possible 0.6 cm stone of right lower pole. No evidence of ureteral or bladder calculi. Skeletal structures are unremarkable. XR/XR KUB IMPRESSION: * The evaluation of the kidneys is limited on this abdominal radiograph due to overlying bowel. * Possible stone of the lower pole of the right kidney.
[2023-10-03 07:43] VITALS: BMI 31.6
[2023-10-03 08:02] VITALS: BP 135/81; PULSE 62; RESP 15; TEMP 36.5; O2SAT 97
[2023-10-03] MEDS: Lactated Ringers 1,000 ML 100 ML IVCONT (08:04)
--- NOTE | 2023-10-03 08:53 | MHC.SHP ---
Pre-Procedural Eval Section A Date of Service: 10/03/23 The patient is an INPATIENT: No Changes since office visit: No Cold of Flu in the past 2 weeks, No New Medical Problems, No Changes in Medication and No Patient answered all questions The History & Physical has been completed within 30 days and I have reviewed it.: Yes Section B Chief Complaint: Calculus of kidney Details of Present Illness: right Relevant Social History: None Present Medications: see Short Stay Collaborative assessment Medical History: No relevant PMH Allergies: Allergies Allergy/AdvReac Type Severity Reaction Status Date / Time No Known Allergies Allergy Verified 10/03/23 07:40 Review of Systems Sugical H&P ROS: Negative: Constitution, Cardiovascular, Respiratory, Neurological, Psychiatric, Hem-Onc, Allergic/Immunologic, Gastrointestinal, Genitourinary, Musculoskeletal, Integumentary, Endocrine and Eyes/Ears/Nose/Throat Exam Surgical H&P Exam: Normal: HEENT, Normal: Heart, Normal: Lungs, Normal: Extremities, Normal: Abdomen, Normal: Skin and Normal: Neurological Plan Diagnosis/Plan: Unchanged (right ESWL) I have reviewed the history and physical and performed a pertinent physical examination on my patient. No changes have occurred unless specified. Time Spent With Patient Time: Total time managing care of this patient today ____ minutes.
--- NOTE | 2023-10-03 09:11 | W.PM.OPN ---
Operative Note Operative Note Date of Service: 10/03/23 Narrative: PreOperative Diagnosis: right Renal stones Post Operative Diagnosis: right Renal stones Procedure: right ESWL Surgeon: Dr Onur Mcfadden Anesthesia: mac/sedation Indications for procedure: The patient understands ESWL may be a staged procedure and subsequent intervention may be required based on imaging after ESWL. Quoted stone clearance rates for a solitary procedure are in the 70-80% range based primarily on stone location. They also understand there is a risk of bleeding to the kidney, infection, damage to adjacent organs, and stone migration following the procedure. - Imaging 9mm right on CT and US Procedure: After informed consent was verified the patient was brought to the operating room and placed in a supine position. Anesthesia was performed per protocol. Safety pause time-out was performed. Imaging was displayed in the room and laterality confirmed. ESWL was performed. The 1st 500 shocks were performed at 60 hertz. These were performed with increasing power. Once maximum power was reached the rate was increased to 180 hertz. A total of 2500 shocks were given. Targeted imaging with ultrasound/fluoroscopy showed stone smudging suggestive of disintegration. The patient tolerated the procedure well and was transferred to the recovery area upon completion. Post procedure imaging will be organized. There was no evidence for flank discoloration.
[2023-10-03 09:40] VITALS: BP 133/86; PULSE 63; RESP 18; TEMP 36.2; O2SAT 100
[2023-10-03 09:55] VITALS: BP 152/101; PULSE 69; RESP 16; TEMP 36.3; O2SAT 98
--- NOTE | 2023-10-03 10:29 | PC.NURSE ---
prior to discharge cleared withmd. Herr re-diastolic patient states 0/10 pain all else wnl. ok to d/c as instructed
== END 2023-10-03 10:38 | disposition home or self-care (01) ==
PROVIDERS: PCP Internal Medicine; Visit Provider Urology
PROC: (CPT 50590; principal; 2023-10-03 09:20)
DX: N20.0 Calculus of kidney (principal); N28.1 Cyst of kidney, acquired; J45.30 Mild persistent asthma, uncomplicated; K21.9 Gastro-esophageal reflux disease without esophagitis; E55.9 Vitamin D deficiency, unspecified; Z79.899 Other long term (current) drug therapy; F12.90 Cannabis use, unspecified, uncomplicated
CPT/HCPCS: 50590; 74018; J0131; J1885; J1940; J2250; J2704; J3010

== ENCOUNTER → 2023-10-03 07:12 | Outpatient (BNV) | payer BC, SELFPAY | PROVIDERS: PCP Internal Medicine; Visit Provider Urology | DX: N20.0 Calculus of kidney (principal) | CPT/HCPCS: 50590 ==

== ENCOUNTER 2023-12-06 16:23 | Outpatient (AMB) | payer BC, SELFPAY ==
[2023-12-06 16:30] VITALS: BP 132/90; BMI 32.4
--- NOTE | 2023-12-06 16:30 | A.OFFPC_ITS ---
Vital Signs 12/06/23 16:30 12/06/23 17:14 Height 5 ft 10 in Weight 226 lb BMI 32.4 BP 132/90 H 132/80 Blood Pressure Location Lt brachial Lt brachial Position Sitting Sitting Intake Visit Reasons: pe Intake Note: Patient here for a physical exam Frame Expander Required: No Accompanied by: Self / Same As Patient Allergies nabumetone Adverse Reaction (Severe, Verified 12/06/23 16:46) Headache Medication List - Last Reconciled 12/06/23 by Archana Pike MD omeprazole 20 mg PO DAILY 90 days Tobacco use date assessed: 12/06/23 Dental Screening Dental Screen Date: 12/06/23 Did you have a dental visit in the last 12 months?: Yes Did you have a dental problem in the last 6 months where you did not have access to dental care?: No Was dental information given to patient?: Patient has dentist HPI HPI Comments History of Present Illness Details This is a 43-year-old male that comes for his physical exam denies any chest pain or shortness of breath. No fever or cough. No family history of colon cancer. Had mild transaminitis that will be repeated. [facility] Medical History (Updated 12/06/23 @ 16:55 by Archana Pike MD) Renal stones GERD (gastroesophageal reflux disease) Asthma Surgical History H/O arthroscopy of left knee Family History (Updated 12/06/23 @ 16:49 by Archana Pike MD) Father Diabetic nephropathy Mother Diabetes mellitus Hepatic encephalopathy Parkinsons disease Family/Other Substance use disorder Social History Housing: House Alcohol intake: former Patient Tobacco Use Status: Never used Tobacco e-Cigarette/Vaping Use: Never Used Second Hand Smoke Exposure: No Substance Use Type: Marijuana service: No Current occupational status: employed Current occupational exposures/hazards: No Cognitive needs: No Hearing needs: No Vision needs: No Questionnaire PHQ-9 Over the last 2 weeks, how often have you been bothered by any of the following problems? 1. Little interest or pleasure in doing things: not at all 2. Feeling down, depressed, or hopeless: not at all 3. Trouble falling or staying asleep, or sleeping too much: not at all 4. Feeling tired or having little energy: not at all 5. Poor appetite or overeating: not at all 6. Feeling bad about yourself - or that you are a failure or have let yourself or your family down: not at all 7. Trouble concentrating on things, such as reading the newspaper or watching television: not at all 8. Moving or speaking so slowly that other people could have noticed. Or the opposite - being so fidgety or restless that you have been moving around a lot more than usual: not at all 9. Thoughts that you would be better off or of hurting yourself in some way: not at all Total score: 0 Depression Screening Interpretation: Negative Depression Screening Done: Yes 85118 - PHQ-9 Billing: Yes Source: Developed by Drs. Balaji Lin, Lexus Castellano, Francesco Driver and colleagues, with an educational lilliam from [employer]. Thrive Questionnaire Date Thrive assessed: 12/06/23 I am a: Patient What is your living situation today?: I have a steady place to live Within the past 12 months, did the food you bought not last and you didn't have the money to get more?: Never true Within the past 12 months, did you worry whether your food would run out before you got money to buy more?: Never true Do you have trouble paying for medicines?: No Do you have trouble getting transportation to medical appointments?: No Do you have trouble paying your heating and electricity bill?: No Do you have trouble taking care of your child, family member or friend?: No Do you have trouble with day-to-day activities such as bathing, preparing meals, shopping, managing finances, etc.?: No Are you currently unemployed and looking for a job?: No Are you interested in more education?: No Please select the resources that you would like help with: None Currently or been in a relationship where the following occur: no concerns reported AUDIT C Alcohol Use Questionnaire (AUDIT-C) 1. How often do you have a drink containing alcohol?: Never Total Score: 0 LEE ANN-7 AMB Questionnaire LEE ANN-7 Date LEE ANN - 7 assessed: 12/06/23 Feeling nervous, anxious, or on edge: 0 = Not at all Not being able to stop or control worryin = Not at all Worrying too much about different things: 0 = Not at all Trouble relaxin = Not at all Being so restless that it is hard to sit still: 0 = Not at all Becoming easily annoyed or irritable: 0 = Not at all Feeling afraid as if something awful might happen: 0 = Not at all Total LEE ANN-7 score (0-4 normal; 5-9 mild; 10-14 moderate; 15-21 severe): 0 Source: Developed by Drs. Balaji Lin, Lexus Castellano, Francesco Driver and colleagues, with an educational lilliam from [employer]. LEE ANN-7 Assessment Billing LEE ANN-7 Assessment Tool: LEE ANN-7 Assessment 29046 Review of Systems Const All systems reviewed & are unremarkable except as noted in HPI and below Eyes Reports no additional complaints, Denies change in vision and Denies other visual disturbances Card Denies chest pain at rest, Denies chest pain with activity, Denies edema, Denies irregular heart rhythm, Denies claudication, Denies dyspnea, Denies dyspnea on exertion, Denies orthopnea, Denies paroxysmal nocturnal dyspnea and Denies slow heart rate Resp Denies cough, Denies dyspnea and Denies dyspnea on exertion GI Denies abdominal pain, Denies change in bowel habits, Denies excessive flatus, Denies nausea and Denies vomiting Denies urinary hesitancy, Denies urinary incontinence and Denies urinary urgency Musc Denies abnormal gait, Denies atrophy, Denies deformity and Denies limited range of motion Skin/Breast Denies bleeding lesions, Denies changing lesions and Denies rash Neuro Denies abnormal gait and Denies lack of coordination Physical exam (Primary Care) Vital Signs: Last Vital Signs BP 132/90 H 12/06/23 16:30 BMI result Body Mass Index 32.4 Tobacco/Smoking Status: Tobacco use Status Tobacco use date assessed 12/06/23 12/06/23 16:36 Patient Tobacco Use Status Never used Tobacco 12/06/23 16:36 Tobacco use type 12/06/23 16:36 e-Cigarette/Vaping Use Never Used 12/06/23 16:36 PHQ-9: PHQ-9 Score PHQ-9: Total score 0 12/06/23 16:59 Depression Screening Interpretation: Negative Thrive Assessment: Date of Thrive Assessment Date Thrive assessed 12/06/23 12/06/23 16:36 Currently or been in a relationship where the following occur: no concerns reported Const Orientation/consciousness: patient oriented x3 [facility] Head: Yes normal to inspection, Yes normocephalic and Yes atraumatic Ears: external ears normal Eyes General: appearance normal, both eyes and all related structures Eyelids: Yes eyelids normal Conjunctivae: conjunctivae normal Neck Neck: Yes normal visual inspection and Yes supple Resp Effort & Inspection: normal respiratory effort Auscultation: clear to auscultation bilaterally Cardio Jugular venous distension: no JVD Rate: regular rate Rhythm: regular rhythm Heart sounds: S1 normal heart sound present and S2 normal heart sound present GI Inspection: Yes normal to inspection Palpation (GI): Soft to palpation and nontender Auscultation: normal bowel sounds Skin General skin exam: no rashes or lesions noted Neuro General: patient oriented x3 and no focal motor deficits Extrem General: Yes full ROM Psych Appearance: grossly normal Office Procedures Flu Questionnaire Does the patient have a severe egg allergy?: No Does the patient have severe life threatening allergies?: No Does the patient have a fever or illness today?: No Has the patient ever had Guillain-Laurel Syndrome?: No Has the patient ever had any past reaction to a flu shot?: No Immunizations flu vacc [id number] 6mos up(PF) 60 mcg(15 mcgx4)/0.5 mL IM syringe Performing Provider: Archana Pike MD Performing Location: [facility] Administered by: STELLA Butcher on 12/06/23 17:01 Dose Route Admin Location Dispensed Lot Number Expiration Date NDC Car [employer] Installer 0.5 mL IM Left Deltoid 0.5 mL [id number] 05/18/24 [id number] Joome VIS Given Date VIS Provided VIS Publication Date 12/06/23 Single Vaccine 21 Eligibility Eligibility Date Funding Source Not [facility] Eligible 12/06/23 Private Assessment and Plan Assessment & Plan (1) Physical exam: Code(s): Z00.00 - Encounter for general adult medical examination without abnormal findings Plan: Physical exam Orders: Orders Vitamin D 25-OH Total Today E55.9 - Vitamin D deficiency, unspecified Vitamin B12 and Folate Today E53.8 - Deficiency of other specified B group vitamins Influenza 1032-3040 Immunization Today Z23 - Encounter for immunization Comprehensive [place]. Panel Fast Today Z00.00 - Encounter for general adult medical examination without abnormal findings Lipid Panel Today Z00.00 - Encounter for general adult medical examination without abnormal findings Coding Level of Care Code Est Pt Prev Care 40-64y(00935) Diagnoses Physical exam Z00.00 Additional Codes LEE ANN-7 Assessment Billing - LEE ANN-7 Assessment Tool: LEE ANN-7 Assessment 12813 ([id number]) Time Spent (min) 31
[2023-12-06 17:14] VITALS: BP 132/80
== END 2023-12-06 16:58 | disposition home or self-care (01) ==
PROVIDERS: PCP Internal Medicine; Visit Provider Internal Medicine
DX: Z23 Encounter for immunization (principal); Z00.00 Encounter for general adult medical examination without abnormal findings
CPT/HCPCS: 90471; 90686; 99396

== ENCOUNTER 2023-12-08 10:26 | Outpatient (REF) | payer BC, SELFPAY ==
[2023-12-08 12:16] LABS: Folate 10.7 ng/mL (> or = 4.0); Vitamin B12 248 pg/mL (200-900)
== END 2023-12-08 10:27 | disposition home or self-care (01) ==
LOC: HO.LAB 10:26
PROVIDERS: PCP Internal Medicine; Visit Provider Internal Medicine
DX: E53.8 Deficiency of other specified B group vitamins (principal)
CPT/HCPCS: 36415; 80053; 80061; 82306; 82607; 82746

== ENCOUNTER 2023-12-15 08:13 | Outpatient (REF) | payer BC, SELFPAY ==
[2023-12-15 10:33] LABS: Alanine Aminotransferase 36 U/L (0-40); Albumin Level 4.5 g/dL (3.5-5.0); Alkaline Phosphatase 83 U/L (39-117); Anion Gap 13 (12-20); Aspartate Amino Transferase 22 U/L (5-37); Bilirubin Total 0.8 mg/dL (0.0-1.0); Blood Urea Nitrogen 15 mg/dL (9-16); Calcium 9.3 mg/dL (8.4-10.2); Carbon Dioxide 27 mmol/L (22-29); Chloride 107 mmol/L (96-108); Cholesterol 166 mg/dL (<200); Estimated Glomerular Filt Rate > 60; Glucose Fasting 95 mg/dL (60-99); HDL Cholesterol 41 mg/dL (>40); LDL Cholesterol Calculated 109 mg/dL (<100); Potassium 3.9 mmol/L (3.3-5.1); Sodium 143 mmol/L (135-145); Total Protein 8.1 g/dL (6.5-8.0); Triglycerides 82 mg/dL (<150)
[2023-12-15 10:51] LABS: Vitamin D 25-OH Total 6.8 ng/mL (>30)
== END 2023-12-15 08:14 | disposition home or self-care (01) ==
LOC: HO.LAB 08:13
PROVIDERS: PCP Internal Medicine; Visit Provider Internal Medicine
DX: Z00.00 Encounter for general adult medical examination without abnormal findings (principal); E55.9 Vitamin D deficiency, unspecified
CPT/HCPCS: 36415; 80053; 80061; 82306

== ENCOUNTER 2024-01-31 09:42 | Outpatient (AMB) | payer BC, SELFPAY ==
[2024-01-31 09:50] VITALS: BP 160/110; BMI 32.3
--- NOTE | 2024-01-31 09:50 | MHC.PC.OV ---
Vital Signs 01/31/24 09:50 01/31/24 11:48 Height 5 ft 10 in Weight 225 lb BMI 32.3 BP 160/110 H 160/100 H Blood Pressure Location Lt brachial Lt brachial Position Sitting Sitting Intake Visit Reasons: Pain On Right Side of Lung Intake Note: Patient here for follow up right side pain Building Inspector Required: No Accompanied by: Self / Same As Patient Allergies nabumetone Adverse Reaction (Severe, Verified 01/31/24 10:23) Headache Medication List - Last Reconciled 01/31/24 by Archana Pike MD cholecalciferol (vitamin D3) 50 mcg PO DAILY 90 days omeprazole 20 mg PO DAILY 90 days Tobacco use date assessed: 01/31/24 HPI HPI Comments History of Present Illness Details This is a 43-year-old male with mild asthma, chronic GERD, obesity, low vitamin-D at and elevated blood pressure reading without diagnosis of hypertension comes today complaining of back pain that went away on its own. Asthma stable with rescue inhaler and he use rescue inhaler less than once a month. GERD stable with PPIs. He is obese with a BMI of 32.3 and was advised to diet and exercise. On vitamin-D supplements for his low vitamin-D. Blood pressure will be recheck in 3 weeks by nurse navigator. He denies any chest pain or shortness of breath. No headaches. [facility] Medical History (Updated 01/31/24 @ 11:50 by Archana Pike MD) Renal stones GERD (gastroesophageal reflux disease) Asthma Surgical History H/O arthroscopy of left knee Family History Father Diabetic nephropathy Mother Diabetes mellitus Hepatic encephalopathy Parkinsons disease Family/Other Substance use disorder Social History Housing: House Alcohol intake: former Patient Tobacco Use Status: Never used Tobacco e-Cigarette/Vaping Use: Never Used Second Hand Smoke Exposure: No Substance Use Type: Marijuana service: No Current occupational status: employed Current occupational exposures/hazards: No Cognitive needs: No Hearing needs: No Vision needs: No Questionnaire Thrive Questionnaire Date Thrive assessed: 12/06/23 LEE ANN-7 AMB Questionnaire LEE ANN-7 Date LEE ANN - 7 assessed: 12/06/23 Source: Developed by Drs. Balaji Lin, Lexus Castellano, Francesco Driver and colleagues, with an educational lilliam from [employer]. Review of Systems Const All systems reviewed & are unremarkable except as noted in HPI and below Eyes Reports no additional complaints, Denies change in vision and Denies other visual disturbances Card Denies chest pain at rest, Denies chest pain with activity, Denies edema, Denies irregular heart rhythm, Denies claudication, Denies dyspnea, Denies dyspnea on exertion, Denies orthopnea, Denies paroxysmal nocturnal dyspnea and Denies slow heart rate Resp Denies cough, Denies dyspnea and Denies dyspnea on exertion GI Denies abdominal pain, Denies change in bowel habits, Denies excessive flatus, Denies nausea and Denies vomiting Denies urinary hesitancy, Denies urinary incontinence and Denies urinary urgency Musc Denies abnormal gait, Denies atrophy, Denies deformity and Denies limited range of motion Skin/Breast Denies bleeding lesions, Denies changing lesions and Denies rash Neuro Denies abnormal gait, Denies behavioral changes and Denies lack of coordination Psych Denies behavioral changes Physical exam (Primary Care) Vital Signs: Last Vital Signs BP 160/110 H 01/31/24 09:50 BMI result Body Mass Index 32.3 Tobacco/Smoking Status: Tobacco use Status Tobacco use date assessed 01/31/24 01/31/24 09:55 Patient Tobacco Use Status Never used Tobacco 01/31/24 09:55 Tobacco use type 12/06/23 16:59 e-Cigarette/Vaping Use Never Used 01/31/24 09:55 Thrive Assessment: Date of Thrive Assessment Date Thrive assessed 12/06/23 01/31/24 09:55 Eyes General: appearance normal, both eyes and all related structures Eyelids: Yes eyelids normal Conjunctivae: conjunctivae normal Neck Neck: Yes normal visual inspection and Yes supple Resp Effort & Inspection: normal respiratory effort Auscultation: clear to auscultation bilaterally Cardio Jugular venous distension: no JVD Rate: regular rate Rhythm: regular rhythm Heart sounds: S1 normal heart sound present and S2 normal heart sound present Extrem General: Yes full ROM Assessment and Plan Assessment & Plan (1) Chronic GERD: Code(s): K21.9 - Gastro-esophageal reflux disease without esophagitis Plan: Continue PPIs. (2) Hypovitaminosis D: Code(s): E55.9 - Vitamin D deficiency, unspecified Plan: Continue vitamin-D supplements. (3) Obese: Code(s): E66.9 - Obesity, unspecified Plan: Start diet and exercise. BMI goal is less than 30. (4) Mild persistent asthma: Code(s): J45.30 - Mild persistent asthma, uncomplicated Plan: Use rescue inhaler as needed. (5) Elevated blood pressure reading without diagnosis of hypertension: Code(s): R03.0 - Elevated blood-pressure reading, without diagnosis of hypertension Plan: Blood pressure will be recheck in with nurse navigator in 3 weeks. Blood pressure goal is equal or less than 130/80. Medications: New diclofenac sodium 1% (Aleve (diclofenac)) apply to single elbow, wrist or hand; for hand includes palm/fingers/back of hand 2 grams topical QID 100 grams 0RF 30 days Coding Level of Care Code Est Pt Level 4 (75668) Diagnoses Chronic GERD K21.9 Hypovitaminosis D E55.9 Obese E66.9 Mild persistent asthma J45.30 Elevated blood pressure reading without diagnosis of hypertension R03.0 Time Spent (min) 22
[2024-01-31 11:48] VITALS: BP 160/100
== END 2024-01-31 10:35 | disposition home or self-care (01) ==
PROVIDERS: PCP Internal Medicine; Visit Provider Internal Medicine
DX: K21.9 Gastro-esophageal reflux disease without esophagitis (principal); E55.9 Vitamin D deficiency, unspecified; J45.30 Mild persistent asthma, uncomplicated; R03.0 Elevated blood-pressure reading, without diagnosis of hypertension
CPT/HCPCS: 99214

== ENCOUNTER 2024-06-05 16:41 | Outpatient (AMB) | payer BC, SELFPAY ==
[2024-06-05 16:47] VITALS: BP 130/90; BMI 31.7
--- NOTE | 2024-06-05 16:47 | MHC.PC.OV ---
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 Will make an appointment with Ophthalmology. GERD has been stable with PPIs. On vitamin-D supplements for his low vitamin-D. [facility] Medical History Renal stones GERD (gastroesophageal reflux disease) Asthma Surgical History H/O arthroscopy of left knee Family History Father Diabetic nephropathy Mother Diabetes mellitus Hepatic encephalopathy Parkinsons disease Family/Other Substance use disorder Social History Housing: House Alcohol intake: former Patient Tobacco Use Status: Never used Tobacco e-Cigarette/Vaping Use: Never Used Second Hand Smoke Exposure: No Substance Use Type: Marijuana service: No Current occupational status: employed Current occupational exposures/hazards: No Cognitive needs: No Hearing needs: No Vision needs: No Questionnaire Thrive Questionnaire Date Thrive assessed: 12/06/23 LEE ANN-7 AMB Questionnaire LEE ANN-7 Date LEE ANN - 7 assessed: 12/06/23 Source: Developed by Drs. Balaji Lin, Lexus Castellano, Francesco Driver and colleagues, with an educational lilliam from [employer]. Review of Systems Const All systems reviewed & are unremarkable except as noted in HPI and below Card Denies chest pain at rest, Denies chest pain with activity, Denies edema, Denies irregular heart rhythm, Denies claudication, Denies dyspnea, Denies dyspnea on exertion, Denies orthopnea, Denies paroxysmal nocturnal dyspnea and Denies slow heart rate Resp Denies cough, Denies dyspnea and Denies dyspnea on exertion GI Denies abdominal pain, Denies change in bowel habits, Denies excessive flatus, Denies nausea and Denies vomiting Denies urinary hesitancy, Denies urinary incontinence and Denies urinary urgency Physical exam (Primary Care) Vital Signs: Last Vital Signs BP 130/90 H 06/05/24 16:47 BMI result Body Mass Index 31.7 Tobacco/Smoking Status: Tobacco use Status Tobacco use date assessed 01/31/24 06/05/24 16:52 Patient Tobacco Use Status Never used Tobacco 06/05/24 16:52 Tobacco use type 12/06/23 16:59 e-Cigarette/Vaping Use Never Used 06/05/24 16:52 Thrive Assessment: Date of Thrive Assessment Date Thrive assessed 12/06/23 06/05/24 16:52 Resp Effort & Inspection: normal respiratory effort Auscultation: clear to auscultation bilaterally Cardio Jugular venous distension: no JVD Rate: regular rate Rhythm: regular rhythm Heart sounds: S1 normal heart sound present and S2 normal heart sound present Extrem General: Yes full ROM Assessment and Plan Assessment & Plan (1) Chronic GERD: Code(s): K21.9 - Gastro-esophageal reflux disease without esophagitis Plan: Continue PPIs. (2) Hypovitaminosis D: Code(s): E55.9 - Vitamin D deficiency, unspecified Plan: Continue vitamin-D supplements. Orders: Orders Lipid Panel 6 Months R03.0 - Elevated blood-pressure reading, without diagnosis of hypertension Vitamin D 25-OH Total 6 Months E55.9 - Vitamin D deficiency, unspecified Comprehensive [place]. Panel Fast 6 Months R03.0 - Elevated blood-pressure reading, without diagnosis of hypertension Coding Level of Care Code Est Pt Level 3 (07998) Complex EM visit Add On G2211 Diagnoses Chronic GERD K21.9 Hypovitaminosis D E55.9 Time Spent (min) 19
[2024-06-06 10:39] VITALS: BP 130/88
== END 2024-06-05 17:00 | disposition home or self-care (01) ==
PROVIDERS: PCP Internal Medicine; Visit Provider Internal Medicine
DX: K21.9 Gastro-esophageal reflux disease without esophagitis (principal); E55.9 Vitamin D deficiency, unspecified
CPT/HCPCS: 99213

== ENCOUNTER 2024-11-26 09:42 | Outpatient (REF) | payer BC, SELFPAY ==
[2024-11-26 11:16] LABS: Alanine Aminotransferase 64 U/L (0-40); Albumin Level 4.4 g/dL (3.5-5.0); Alkaline Phosphatase 102 U/L (39-117); Anion Gap 8 (12-20); Aspartate Amino Transferase 47 U/L (5-37); Bilirubin Total 1.3 mg/dL (0.0-1.0); Blood Urea Nitrogen 9 mg/dL (9-16); Calcium 8.9 mg/dL (8.4-10.2); Carbon Dioxide 28 mmol/L (22-29); Chloride 111 mmol/L (96-108); Cholesterol 167 mg/dL (<200); Estimated Glomerular Filt Rate > 60; Glucose Fasting 97 mg/dL (60-99); HDL Cholesterol 35 mg/dL (>40); LDL Cholesterol Calculated 108 mg/dL (<100); Potassium 3.9 mmol/L (3.3-5.1); Sodium 143 mmol/L (135-145); Total Protein 7.7 g/dL (6.5-8.0); Triglycerides 121 mg/dL (<150)
== END 2024-11-26 09:43 | disposition home or self-care (01) ==
LOC: HO.LAB 09:42
PROVIDERS: PCP Internal Medicine; Visit Provider Internal Medicine
DX: R03.0 Elevated blood-pressure reading, without diagnosis of hypertension (principal); E55.9 Vitamin D deficiency, unspecified
CPT/HCPCS: 36415; 80053; 80061; 82306

== ENCOUNTER 2024-12-10 15:54 | Outpatient (AMB) | payer BC, SELFPAY ==
--- NOTE | 2024-12-10 16:06 | A.OFFPC_ITS ---
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 Accompanied by: Self / Same As Patient Allergies nabumetone Adverse Reaction (Severe, Verified 12/10/24 16:15) Headache Medication List - Last Reconciled 12/10/24 by Archana Pike MD cholecalciferol (vitamin D3) 50 mcg PO DAILY 90 days omeprazole 20 mg PO DAILY 90 days Tobacco use date assessed: 12/10/24 Dental Screening Dental Screen Date: 12/10/24 Did you have a dental visit in the last 12 months?: Yes Did you have a dental problem in the last 6 months where you did not have access to dental care?: No Was dental information given to patient?: Patient has dentist HPI HPI Comments History of Present Illness Details The patient is a 44-year-old male presenting for his physical exam with concerns of elevated liver enzymes and vitamin D deficiency. The patient reports lifestyle factors that might contribute to low vitamin D levels, including potential insufficient dietary intake of vitamin D-rich foods such as salmon. Additionally, there was a history of allergic reactions to Nabumetone which manifested as headaches. The patient is currently taking omeprazole for gastroesophageal reflux disease. Regarding lifestyle factors, he drinks alcohol only on special occasions. Recently, lab results showed elevated liver enzymes with noted bilirubin levels and values of 47 and 64, higher than the normal 37 and 40, respectively. The patient mentioned a family history of liver problems, which raises concerns regarding potential hereditary conditions. There have been no recent symptoms like jaundice or changes in urine or stool coloration that might indicate acute liver dysfunction. [facility] Medical History Renal stones GERD (gastroesophageal reflux disease) Asthma Surgical History H/O arthroscopy of left knee Family History Father Diabetic nephropathy Mother Diabetes mellitus Hepatic encephalopathy Parkinsons disease Family/Other Substance use disorder Social History (Updated 12/10/24 @ 16:19 by Archana Pike MD) Housing: House Alcohol intake: current Alcohol intake frequency: holidays/special occasions only Alcohol type: beer Patient Tobacco Use Status: Never used Tobacco e-Cigarette/Vaping Use: Never Used Second Hand Smoke Exposure: No Substance Use Type: Marijuana service: No Current occupational status: employed Current occupational exposures/hazards: No Cognitive needs: No Hearing needs: No Vision needs: No Questionnaire PHQ-9 Over the last 2 weeks, how often have you been bothered by any of the following problems? 1. Little interest or pleasure in doing things: not at all 2. Feeling down, depressed, or hopeless: not at all 3. Trouble falling or staying asleep, or sleeping too much: not at all 4. Feeling tired or having little energy: not at all 5. Poor appetite or overeating: not at all 6. Feeling bad about yourself - or that you are a failure or have let yourself or your family down: not at all 7. Trouble concentrating on things, such as reading the newspaper or watching television: not at all 8. Moving or speaking so slowly that other people could have noticed. Or the opposite - being so fidgety or restless that you have been moving around a lot more than usual: not at all 9. Thoughts that you would be better off or of hurting yourself in some w ay: not at all Total score: 0 Depression Screening Interpretation: Negative Depression Screening Done: Yes 59789 - PHQ-9 Billing: Yes Source: Developed by Drs. Balaji Lin, Lexus Castellano, Francesco Driver and colleagues, with an educational lilliam from [employer]. Thrive Questionnaire Date Thrive assessed: 12/10/24 I am a: Patient What is your living situation today?: I have a steady place to live Within the past 12 months, did the food you bought not last and you didn't have the money to get more?: Sometimes True Within the past 12 months, did you worry whether your food would run out before you got money to buy more?: Sometimes True Do you have trouble paying for medicines?: Yes Do you have trouble getting transportation to medical appointments?: No Do you have trouble paying your heating and electricity bill?: Yes Do you have trouble taking care of your child, family member or friend?: No Do you have trouble with day-to-day activities such as bathing, preparing meals, shopping, managing finances, etc.?: No Are you currently unemployed and looking for a job?: No Are you interested in more education?: No Please select the resources that you would like help with: None Currently or been in a relationship where the following occur: I choose not to answer THRIVE Score: 3 AUDIT C Alcohol Use Questionnaire (AUDIT-C) 1. How often do you have a drink containing alcohol?: Monthly or less 2. How many drinks containing alcohol do you have on a typical day when you are drinking?: 1 or 2 3. How often do you have six or more drinks on one occasion?: Never Total Score: 1 Score Reviewed/Action Taken: No LEE ANN-7 AMB Questionnaire LEE ANN-7 Date LEE ANN - 7 assessed: 12/10/24 Feeling nervous, anxious, or on edge: 0 = Not at all Not being able to stop or control worryin = Not at all Worrying too much about different things: 0 = Not at all Trouble relaxin = Not at all Being so restless that it is hard to sit still: 1 = Several days Becoming easily annoyed or irritable: 0 = Not at all Feeling afraid as if something awful might happen: 0 = Not at all Total LEE ANN-7 score (0-4 normal; 5-9 mild; 10-14 moderate; 15-21 severe): 1 Source: Developed by Drs. Balaji Lin, Lexus Castellano, Francesco Driver and colleagues, with an educational lilliam from [employer]. LEE ANN-7 Assessment Billing LEE ANN-7 Assessment Tool: LEE ANN-7 Assessment 98847 Review of Systems Const All systems reviewed & are unremarkable except as noted in HPI and below Card Denies chest pain at rest, Denies chest pain with activity, Denies edema, Denies irregular heart rhythm, Denies claudication, Denies dyspnea, Denies dyspnea on exertion, Denies orthopnea, Denies paroxysmal nocturnal dyspnea and Denies slow heart rate Resp Denies cough, Denies dyspnea and Denies dyspnea on exertion GI Denies abdominal pain, Denies change in bowel habits, Denies excessive flatus, Denies nausea and Denies vomiting Denies urinary hesitancy, Denies urinary incontinence and Denies urinary urgency Musc Denies abnormal gait, Denies atrophy, Denies deformity and Denies limited range of motion Skin/Breast Denies bleeding lesions, Denies changing lesions and Denies rash Neuro Denies abnormal gait, Denies behavioral changes and Denies lack of coordination Psych Denies behavioral changes Physical exam (Primary Care) Vital Signs: Last Vital Signs BP 130/82 12/10/24 16:07 BMI result Body Mass Index 32.6 BMI Assessment/Plan discussion: High BMI High, discussed plan: lifestyle, weight reduction, dietary and physical activity Tobacco/Smoking Status: Tobacco use Status Tobacco use date assessed 12/10/24 12/10/24 16:12 Patient Tobacco Use Status Never used Tobacco 12/10/24 16:19 Tobacco use type 12/06/23 16:59 e-Cigarette/Vaping Use Never Used 12/10/24 16:19 PHQ-9: PHQ-9 Score PHQ-9: Total score 0 12/10/24 16:32 Depression Screening Interpretation: Negative Thrive Assessment: Date of Thrive Assessment Date Thrive assessed 12/10/24 12/10/24 16:12 Currently or been in a relationship where the following occur: I choose not to answer HENMA Head: Yes normal to inspection, Yes normocephalic and Yes atraumatic Ears: external ears normal Eyes General: appearance normal, both eyes and all related structures Eyelids: Yes eyelids normal Conjunctivae: conjunctivae normal Neck Neck: Yes normal visual inspection and Yes supple Resp Effort & Inspection: normal respiratory effort Auscultation: clear to auscultation bilaterally Cardio Jugular venous distension: no JVD Rate: regular rate Rhythm: regular rhythm Heart sounds: S1 normal heart sound present and S2 normal heart sound present GI Inspection: Yes normal to inspection Palpation (GI): Soft to palpation and nontender Auscultation: normal bowel sounds Skin General skin exam: no rashes or lesions noted Neuro General: no focal motor deficits Extrem General: Yes full ROM Psych Appearance: grossly normal Office Procedures Flu Questionnaire Does the patient have a severe egg allergy?: No Immunizations Fluarix Triv [id number] (PF) 45 mcg (15 mcg x 3)/0.5 mL IM syringe Performing Provider: Archana Pike MD [facility] [place] [facility] Documented (not given) by: STELLA Butcher on 12/10/24 16:31 Reason Not Given: Patient Refused Coding Level of Care Code Est Pt Level 3 (03357) Est Pt Prev Care 40-64y(77068) Diagnoses Physical exam Z00.00 Transaminitis R74.01 Additional Codes LEE ANN-7 Assessment Billing - LEE ANN-7 Assessment Tool: LEE ANN-7 Assessment 98788 ([id number]) PHQ-9 - 96827 - PHQ-9 Billing: Yes ([id number]) Time Spent (min) 33 Assessment & Plan Assessment & Plan (1) Physical exam: Code(s): Z00.00 - Encounter for general adult medical examination without abnormal findings Category: Medical (2) Transaminitis: Code(s): R74.01 - Elevation of levels of liver transaminase levels Category: Medical Plan - Recommend repeating liver function tests in conjunction with a comprehensive metabolic panel to monitor liver enzymes and bilirubin. - Schedule an abdominal ultrasound to evaluate liver structure and rule out structural anomalies. - Referral to gastroenterology for specialized assessment of elevated liver enzymes. - Continue vitamin D supplementation and encourage increased intake of dietary sources of vitamin D. - Continue omeprazole for management of GERD; avoid Nabumetone due to allergy. - Review alcohol consumption with emphasis on moderation and its potential impact on liver health. Patient was informed and verbally consented to the use of an ambient scribe for clinic note documentation during this visit. I discussed with the patient the elevated liver enzyme levels and the need for further evaluation through laboratory tests and imaging studies, particularly an abdominal ultrasound, to comprehensively assess liver health. We talked about the family history of liver problems and the importance of a gastroenterological consult for specialized advice. I emphasized the essential role of vitamin D in bone health and recommended continuing supplements due to low levels, alongside dietary adjustments to improve overall intake. We reviewed the management of his gastroesophageal reflux disease with continued omeprazole. Alternative analgesics were considered following the allergic reaction to Nabumetone. The patient consented to the proposed diagnostic tests and follow-up plan. Orders: Orders Liver Panel Today R74.01 - Elevation of levels of liver transaminase levels Hepatitis A,B,C Profile Today R74.01 - Elevation of levels of liver transaminase levels US abdomen comp w elastography Today R74.01 - Elevation of levels of liver transaminase levels Influenza 1971-5501 Immunization Today Z23 - Encounter for immunization Referrals Gastroenterology Referral R74.01 - Elevation of levels of liver transaminase levels Patient Instructions: - Take vitamin D supplements as prescribed. - Include more sources of vitamin D in your diet, such as salmon. - Avoid using Nabumetone due to allergic reactions. - Continue using omeprazole as advised for acid reflux. - Expect a call for scheduling both the abdominal ultrasound and follow-up with gastroenterology. - Moderate alcohol consumption, limit to special occasions. - Report any new symptoms such as jaundice or changes in urine/stool promptly.
[2024-12-10 16:07] VITALS: BP 130/82; BMI 32.6
== END 2024-12-10 16:23 | disposition home or self-care (01) ==
PROVIDERS: PCP Internal Medicine; Visit Provider Internal Medicine
DX: Z00.00 Encounter for general adult medical examination without abnormal findings (principal); R74.01 Elevation of levels of liver transaminase levels; Z23 Encounter for immunization

== ENCOUNTER → 2024-12-10 15:54 | Outpatient (BNVA) | payer BC, SELFPAY | PROVIDERS: PCP Internal Medicine; Visit Provider Internal Medicine | DX: Z00.00 Encounter for general adult medical examination without abnormal findings (principal); R74.01 Elevation of levels of liver transaminase levels; K21.9 Gastro-esophageal reflux disease without esophagitis; Z79.899 Other long term (current) drug therapy; Z28.21 Immunization not carried out because of patient refusal | CPT/HCPCS: 96127 ==

== ENCOUNTER 2024-12-20 10:39 | Outpatient (REF) | payer BC, SELFPAY ==
[2024-12-20 12:34] LABS: Alanine Aminotransferase 56 U/L (0-40); Albumin Level 4.4 g/dL (3.5-5.0); Alkaline Phosphatase 95 U/L (39-117); Aspartate Amino Transferase 42 U/L (5-37); Bilirubin Direct 0.3 mg/dL (0.0-0.5); Bilirubin Total 1.2 mg/dL (0.0-1.0); Total Protein 7.9 g/dL (6.5-8.0)
[2024-12-20 12:56] LABS: HBS Num1 1.36 mIU/mL (0-7.99); HBc Num1 0.09 S/CO (0.00-0.79); HBsAGNum1 0.37 S/CO (0.00-0.99); Hepatitis A Antibody IgM 0.18 Index (0-0.79); Hepatitis B Core Antibody Nonreactive (Nonreactive); Hepatitis B Surface Antigen Negative (Negative); ~HepC Num1 0.08 S/CO (0.00-0.79); ~Hepatitis A Antibody IgM Nonreactive (Nonreactive); ~Hepatitis B Surface Antibody NONREACTIVE (Nonreactive); ~Hepatitis C Antibody Nonreactive (Nonreactive)
== END 2024-12-20 10:40 | disposition home or self-care (01) ==
LOC: HO.LAB 10:39
PROVIDERS: PCP Internal Medicine; Visit Provider Internal Medicine
DX: R74.01 Elevation of levels of liver transaminase levels (principal)
CPT/HCPCS: 36415; 80076; 86704; 86706; 86709; 86803; 87340

== ENCOUNTER 2025-01-09 08:27 | Outpatient (REF) | payer BC, SELFPAY ==
--- NOTE | ~2025-01-09 | US_ITS ---
EXAMINATION: US COMPLETE ABDOMEN WITH LIVER ELASTOGRAPHY CLINICAL INFORMATION: Elevation of serum transaminases. COMPARISON: None. Correlation made with CT abdomen and pelvis 05/17/2023. TECHNIQUE: Real-time imaging of the abdominal viscera. Noninvasive ultrasound liver fibrosis assessment is performed using [employer] ElastPQ point quantification shear wave elastography (pSWE) with a C5-2 MHz transducer. Multiple elastography samples are obtained. FINDINGS: PANCREAS: The visualized pancreatic head and body are normal in appearance. The remainder of the pancreas is obscured from visualization by the overlying bowel gas. ABDOMINAL AORTA: No aortic aneurysm is seen. INFERIOR VENA CAVA: Visualized portions are normal. LIVER: The liver demonstrates normal size with diffusely increased hepatic echogenicity. There is normal hepatic contour. There is focal fatty sparing abutting the gallbladder fossa. No intrahepatic biliary dilatation. No suspicious hepatic lesion. The right lobe measures 15.3 cm in length. The left lobe measures 12.5 cm in length. Portal flow is hepatopedal. Shear wave liver elastography median stiffness is 1.48 m/s (reference: normal median stiffness is 1.3 m/s or less). IQR/median stiffness to assess sampling precision is 0.05 (reference: good quality data set is IQR/median stiffness of 0.15 or less). GALLBLADDER: The gallbladder is physiologically distended without evidence of stones, sludge, polyps, wall thickening or pericholecystic fluid. COMMON BILE DUCT: Normal in caliber measuring 0.3 cm in diameter. RIGHT KIDNEY: No hydronephrosis. No focal parenchymal lesions. The kidney measures 11.8 cm in maximum dimension. There are a few nonobstructing renal calculi present, largest measuring 4 mm left midpole. LEFT KIDNEY: No hydronephrosis. No focal parenchymal lesions. The kidney measures cm in maximum dimension. There are lower pole nonobstructing calculi present, largest measuring 9 mm. SPLEEN: Unremarkable. The spleen measures 12.9 cm in maximum dimension. Borderline enlarged. FREE FLUID: None seen. US/US abdomen comp w elastography IMPRESSION: 1. Diffusely increased hepatic echogenicity without suspicious lesion, most likely representing steatosis. Normal hepatic size. 2. Liver elastography: In the absence of other known clinical signs, measurements rule out compensated advanced chronic liver disease. If there are known clinical signs, further testing may be needed for confirmation. 3. Normal gallbladder and bile ducts. 4. Nonobstructing bilateral renal calculi. 5. Top normal splenic size. REFERENCE: Society of Radiologists in Ultrasound Liver Stiffness Thresholds (2020): LIVER STIFFNESS THRESHOLDS: *Liver Stiffness equal or less than 1.3 m/s: High probability of being normal. *Liver Stiffness less than 1.7 m/s: In the absence of other known clinical signs, rules out compensated advanced chronic liver disease. *Liver Stiffness 1.7-2.1 m/s: Suggestive of compensated advanced chronic liver disease but need further test for confirmation. *Liver Stiffness over 2.1 m/s: Rules in compensated advanced chronic liver disease. *Liver Stiffness over 2.4 m/s: Suggestive of clinically significant portal hypertension. QUALITY OF DATA SET: *IQR/Median value equal or less than 0.15 implies a quality data set. *IQR/Median value over 0.15 implies a poor quality data set. SIGNIFICANT CHANGE FROM PRIOR EXAM: Significant change if liver stiffness measurement is 10% or greater from prior exam. OTHER CONSIDERATIONS: The stage of liver fibrosis may be overestimated in the setting of acute hepatitis, liver inflammation, elevated liver function tests, hepatic vascular congestion, obstructive cholestasis, non-fasting state, and infiltrative diseases such as amyloidosis and lymphoma. In some patients with NAFLD, the liver stiffness thresholds for compensated advanced chronic liver disease may be lower. In causes other than viral hepatitis and NAFLD, liver stiffness thresholds are not well established. Electronically signed by: Ovidio Lopes MD 01/09/2025 10:35 AM [facility]
== END 2025-01-09 08:28 | disposition home or self-care (01) ==
LOC: HO.US 08:27
PROVIDERS: PCP Internal Medicine; Visit Provider Internal Medicine
DX: R74.01 Elevation of levels of liver transaminase levels (principal)
CPT/HCPCS: 76700; 76981

== ENCOUNTER → 2025-01-09 08:29 | Outpatient (BNV) | payer BC, SELFPAY | PROVIDERS: PCP Internal Medicine; Visit Provider Radiology Diagnostic Radiology | DX: R74.01 Elevation of levels of liver transaminase levels (principal) | CPT/HCPCS: 76700 ==

== ENCOUNTER 2025-05-18 12:21 | Outpatient (AMB) | payer BC, SELFPAY ==
--- NOTE | 2025-05-18 12:25 | MHC.OFFVIS ---
Vital Signs 05/18/25 12:27 Height 5 ft 10 in Weight 224 lb 13.944 oz BMI 32.3 BP 123/63 Blood Pressure Location Lt brachial Position Sitting Pulse 75 Intake Visit Reasons: LFT levels R/S 03/25/25 Intake Note: Terence presents in the office as a LFTS levels. 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 Noted to have abnormal LFTs intermittently since 2022. Pt himself reports intermittent right sided abd pain david after eating fatty/greasy food. No N/V. No pruritus, joint pains, fatigue. Prev used to drink heavily almost 8 years ago. Now has 2-3 beers per weekend. Smokes marijuana. Mother had chronic hepatitis. Pt's chronic hep panel is negative. US with elastography reviewed no advanced fibrosis. [facility] Medical History Renal stones GERD (gastroesophageal reflux disease) Asthma Surgical History H/O arthroscopy of left knee Family History Father Diabetic nephropathy Mother Diabetes mellitus Hepatic encephalopathy Parkinsons disease Family/Other Substance use disorder Social History Housing: House Alcohol intake: current Alcohol intake frequency: holidays/special occasions only Alcohol type: beer Patient Tobacco Use Status: Never used Tobacco e-Cigarette/Vaping Use: Never Used Second Hand Smoke Exposure: No Substance Use Type: Marijuana service: No Current occupational status: employed Current occupational exposures/hazards: No Cognitive needs: No Hearing needs: No Vision needs: No Review of Systems Const All systems reviewed & are unremarkable except as noted in HPI and below Physical Exam Vital Signs: Last Vital Signs Pulse 75 05/18/25 12:27 BP 123/63 05/18/25 12:27 BMI result Body Mass Index 32.3 No apparent distress Nonicteric Abdomen soft, nondistended Alert and oriented x3, normal gait Assessment & Plan Assessment & Plan (1) Transaminitis: Code(s): R74.01 - Elevation of levels of liver transaminase levels Category: Medical (2) Postprandial RUQ pain: Code(s): R10.11 - Right upper quadrant pain Category: Medical Plan Elevated LFTs and liver steatosis likely secondary to combination of metALD. Will get labs to r/o other chronic liver disease such as AIH, iron overload, wilsons etc. Will cehck hida to r/o biliary colic as pt reports post prandial pain after fatty foods Plan: - Labs as below - HIDA scan FOllow up 2 months Orders: Orders Ceruloplasmin Today R74.01 - Elevation of levels of liver transaminase levels Comprehensive Met. Panel Today R74.01 - Elevation of levels of liver transaminase levels HIV Ab/Ag Today R74.01 - Elevation of levels of liver transaminase levels Immunoglobulin G Today R74.01 - Elevation of levels of liver transaminase levels IRON PROFILE Today R74.01 - Elevation of levels of liver transaminase levels Liver Kidney Microsomal Ab Today R74.01 - Elevation of levels of liver transaminase levels Mitochondrial Antibody Today R74.01 - Elevation of levels of liver transaminase levels Prothrombin Time INR Today R74.01 - Elevation of levels of liver transaminase levels TSH reflex Free T4 Today R74.01 - Elevation of levels of liver transaminase levels Transglutaminase IgA Today R74.01 - Elevation of levels of liver transaminase levels Alpha 1 Anti-trypsin Today R74.01 - Elevation of levels of liver transaminase levels Alpha Fetoprotein Today R74.01 - Elevation of levels of liver transaminase levels Complete Blood Count no Diff Today R74.01 - Elevation of levels of liver transaminase levels Ferritin Today R74.01 - Elevation of levels of liver transaminase levels Hemoglobin A1c Today R74.01 - Elevation of levels of liver transaminase levels Immunoglobulin A Today R74.01 - Elevation of levels of liver transaminase levels Phosphatidylethanol, Blood Today R74.01 - Elevation of levels of liver transaminase levels Smooth Muscle Antibody Today R74.01 - Elevation of levels of liver transaminase levels NM hepatobiliary w pharm Today R74.01 - Elevation of levels of liver transaminase levels Coding Level of Care Code New Pt Level 4 (22373) Diagnoses Transaminitis R74.01 Postprandial RUQ pain R10.11
[2025-05-18 12:27] VITALS: BP 123/63; PULSE 75; BMI 32.3
== END 2025-05-18 12:58 | disposition home or self-care (01) ==
LOC: HO.HGI 12:21
PROVIDERS: PCP Internal Medicine; Visit Provider Internal Medicine
DX: R74.01 Elevation of levels of liver transaminase levels (principal); R10.11 Right upper quadrant pain
CPT/HCPCS: 99204

== ENCOUNTER 2025-05-18 12:21 | Outpatient (REF) | payer BC, SELFPAY ==
[2025-05-18 14:02] LABS: Hematocrit 43.4 % (42.0-52.0); Hemoglobin 15.2 g/dl (14.0-18.0); Mean Corpuscular Hemoglobin 29.9 pg (27.0-33.0); Mean Corpuscular Volume 85.3 fL (80.0-98.0); Mean Platelet Volume 10.8 fL (9.4-12.4); Platelet Count 194 X10*3/uL (160-400); Red Blood Count 5.09 X10*6/uL (4.60-5.80); Red Cell Distribution Width 12.6 % (11.0-16.0); White Blood Count 6.5 X10*3/uL (4.8-10.8)
[2025-05-18 14:03] LABS: Estimated Average Glucose 126 mg/dL
[2025-05-18 14:32] LABS: Alanine Aminotransferase 58 U/L (0-40); Albumin Level 4.4 g/dL (3.5-5.0); Alkaline Phosphatase 88 U/L (39-117); Anion Gap 11 (12-20); Aspartate Amino Transferase 41 U/L (5-37); Bilirubin Total 0.9 mg/dL (0.0-1.0); Blood Urea Nitrogen 11 mg/dL (9-16); Calcium 9.1 mg/dL (8.4-10.2); Carbon Dioxide 26 mmol/L (22-29); Chloride 108 mmol/L (96-108); Estimated Glomerular Filt Rate > 60; Glucose Random 187 mg/dL (60-115); Iron 98 mcg/dL (45-160); Percent Iron Saturation 38 % (15-50); Potassium 3.6 mmol/L (3.3-5.1); Sodium 141 mmol/L (135-145); Total Iron Binding Capacity 258 mcg/dL (228-428); Total Protein 7.4 g/dL (6.5-8.0); Unsaturated Iron Binding 160 ug/dL
[2025-05-18 14:39] LABS: HIV AB/AG Nonreactive (Nonreactive); HIV Num 1 0.06 S/CO (0.00-0.99)
[2025-05-18 14:46] LABS: Ferritin 178 ng/mL (20-250); TSH reflex Free T4 0.47 uIU/mL (0.32-4.0)
[2025-05-19 05:09] LABS: Immunoglobulin A 249 mg/dL (47-310); Immunoglobulin G 1531 mg/dL (600-1640)
[2025-05-19 10:38] LABS: Alpha 1 Anti-trypsin 106 mg/dL (83-199); Ceruloplasmin 18 mg/dL (14-30)
[2025-05-19 21:28] LABS: Transglutaminase IgA <1.0 U/mL
[2025-05-20 11:55] LABS: Mitochondrial Antibodies NEGATIVE (NEGATIVE)
[2025-05-21 00:13] LABS: Smooth Muscle Antibody <20 U (<20)
[2025-05-21 07:15] LABS: Liver Kidney Microsomal Ab <=20.0 U (<=20.0)
== END 2025-05-18 12:22 | disposition home or self-care (01) ==
LOC: HO.LAB 12:21
PROVIDERS: PCP Internal Medicine; Visit Provider Internal Medicine
DX: R74.01 Elevation of levels of liver transaminase levels (principal); R10.11 Right upper quadrant pain; Z13.1 Encounter for screening for diabetes mellitus; J45.909 Unspecified asthma, uncomplicated; K21.9 Gastro-esophageal reflux disease without esophagitis
CPT/HCPCS: 36415; 80053; 80321; 82103; 82105; 82390; 82728; 82784; 83036; 83540; 84443; 85027; 85610; 86015; 86364; 86376; 86381; 87389

== ENCOUNTER → 2025-06-15 07:53 | Outpatient (REF) | payer BC, SELFPAY ==
--- NOTE | ~2025-06-15 | NM_ITS ---
EXAMINATION: NM HEPATOBILIARY WITH PHARM HISTORY: R74.01 - Elevation of levels of liver transaminase levels. TECHNIQUE: An hepatobiliary scan was performed following the intravenous administration of 5 mCi technetium 99m-mebrofenin. Sequential images were obtained over 1 hour. Subsequently, the patient received 2.1 microgram of IV CCK over 30 minutes and additional imaging was performed. COMPARISON: Correlation is made with an abdominal ultrasound dated 01/09/2025. FINDINGS: There is normal uptake and excretion of the radiopharmaceutical by the liver. Gallbladder activity is noted at 10 minutes. Common bile duct activity is seen at 26 minutes. Small bowel activity is noted at 30 minutes. After the administration of intravenous CCK, the estimated gallbladder ejection fraction is 95%, which is within normal limits (normal 35-80%). NM/NM hepatobiliary w pharm IMPRESSION: Normal hepatobiliary scan with normal gallbladder ejection fraction. Electronically signed by: Balaji Navarrete MD 06/15/2025 10:14 AM EDT
== END ==
LOC: HO.NUCMED 07:53
PROVIDERS: PCP Internal Medicine; Visit Provider Internal Medicine
DX: R74.01 Elevation of levels of liver transaminase levels (principal)
CPT/HCPCS: 78227; A9537; J2805

== ENCOUNTER → 2025-06-15 07:55 | Outpatient (BNV) | payer BC, SELFPAY | PROVIDERS: PCP Internal Medicine; Visit Provider Radiology Diagnostic Radiology | DX: R74.01 Elevation of levels of liver transaminase levels (principal) | CPT/HCPCS: 78227 ==

== ENCOUNTER 2025-07-27 10:07 | Outpatient (AMB) | payer BC, SELFPAY ==
--- NOTE | 2025-07-27 10:10 | MHC.OFFVIS ---
Vital Signs 07/27/25 10:13 Height 5 ft 10 in Weight 231 lb 7.766 oz BMI 33.2 BP 118/78 Blood Pressure Location Lt brachial Position Sitting Pulse 72 Intake Visit Reasons: 2m Intake Note: Terence presents in the office as a 2 month follow up. CC: No concerns at this time. Allergies nabumetone Adverse Reaction (Severe, Verified 07/27/25 10:14) Headache HPI Comments Details: 44 y.o M with PMH of obesit, former etOH use, who is here for elevated LFTs. Noted to have abnormal LFTs intermittently since 2022. Pt himself reports intermittent right sided abd pain david after eating fatty/greasy food. No N/V. No pruritus, joint pains, fatigue. Prev used to drink heavily almost 8 years ago. Now has 2-3 beers per weekend. Smokes marijuana. Mother had chronic hepatitis. Pt's chronic hep panel is negative. US with elastography reviewed no advanced fibrosis. HIDA scan 06/15/25: There is normal uptake and excretion of the radiopharmaceutical by the liver. Gallbladder activity is noted at 10 minutes. Common bile duct activity is seen at 26 minutes. Small bowel activity is noted at 30 minutes. After the administration of intravenous CCK, the estimated gallbladder ejection fraction is 95%, 07/27/25: here for follow up. Reports continued post prandial abd pain on both right and left side. david after greasy food. Occ has heart burn as well. No dysphagia noted. No regurgitation. No fam hx of esophageal or stomach ca. No BM changes. In terms of LFTs, reviewed that labs consistent with metALD, remaining chronic liver work up was negative. [facility] Medical History Renal stones GERD (gastroesophageal reflux disease) Asthma Surgical History H/O arthroscopy of left knee Family History Father Diabetic nephropathy Mother Diabetes mellitus Hepatic encephalopathy Parkinsons disease Family/Other Substance use disorder Social History Housing: House Alcohol intake: current Alcohol intake frequency: holidays/special occasions only Alcohol type: beer Patient Tobacco Use Status: Never used Tobacco e-Cigarette/Vaping Use: Never Used Second Hand Smoke Exposure: No Substance Use Type: Marijuana service: No Current occupational status: employed Current occupational exposures/hazards: No Cognitive needs: No Hearing needs: No Vision needs: No Review of Systems Const All systems reviewed & are unremarkable except as noted in HPI and below Physical Exam Exam Exam: No apparent distress Nonicteric Abdomen soft, nondistended Alert and oriented x3, normal gait Vital Signs: Last Vital Signs Pulse 72 07/27/25 10:13 BP 118/78 07/27/25 10:13 BMI result Body Mass Index 33.2 Assessment & Plan Assessment & Plan (1) Obese: Code(s): E66.9 - Obesity, unspecified Category: Medical (2) Chronic GERD: Code(s): K21.9 - Gastro-esophageal reflux disease without esophagitis Category: Medical (3) Transaminitis: Code(s): R74.01 - Elevation of levels of liver transaminase levels Category: Medical (4) Generalized postprandial abdominal pain: Code(s): R10.84 - Generalized abdominal pain Category: Medical (5) Biliary dyskinesia: Code(s): K82.8 - Other specified diseases of gallbladder Category: Medical Plan 1. Post prandial abd pain Ddx include PUD, gastritis, SIBO. Gallbladder EF noted to be high at 95%, ? biliary hyperkinesia. Plan: - Start famotidine 20 mg once daily - EGD to be booked - SUrg referral to review indication for CCY 2. ELevated LFTs Likely 2/2 metALD. No significant fibrosis on elasto. Plan: - Cont to abstain from etOH - at least 10% total body weight loss recommended over 6 months - Add 150 mins/week of mod intensity exercise - Can review GLP-1 agonist with PCP Follow up after egd Orders: Referrals GI Procedure Notification K21.9 - Gastro-esophageal reflux disease without esophagitis, R10.84 - Generalized abdominal pain General Surgery Referral K83.9 - Disease of biliary tract, unspecified, R10.11 - Right upper quadrant pain Medications: New famotidine 20 mg PO BEDTIME 90 tabs 0RF Discontinued omeprazole Discontinued Reason: Doctor's Order 20 mg PO DAILY 90 days 90 caps 1RF K21.9 - Gastro-esophageal reflux disease without esophagitis Coding Level of Care Code Est Pt Level 4 (20769) Complex EM visit Add On G2211 Diagnoses Obese E66.9 Chronic GERD K21.9 Transaminitis R74.01 Generalized postprandial abdominal pain R10.84 Biliary dyskinesia K82.8
[2025-07-27 10:13] VITALS: BP 118/78; PULSE 72; BMI 33.2
== END 2025-07-27 11:47 | disposition home or self-care (01) ==
LOC: HO.HGI 10:08
PROVIDERS: PCP Internal Medicine; Visit Provider Internal Medicine
DX: E66.9 Obesity, unspecified (principal); K21.9 Gastro-esophageal reflux disease without esophagitis; R74.01 Elevation of levels of liver transaminase levels; R10.84 Generalized abdominal pain; K82.8 Other specified diseases of gallbladder
CPT/HCPCS: 99214

== ENCOUNTER → 2025-07-27 10:07 | Outpatient (BNVA) | payer BC, SELFPAY | PROVIDERS: PCP Internal Medicine; Visit Provider Internal Medicine | DX: E66.9 Obesity, unspecified (principal); Z68.33 Body mass index [BMI] 33.0-33.9, adult; K21.9 Gastro-esophageal reflux disease without esophagitis; R10.84 Generalized abdominal pain; R74.01 Elevation of levels of liver transaminase levels; K82.8 Other specified diseases of gallbladder; F10.11 Alcohol abuse, in remission; Z13.89 Encounter for screening for other disorder ==

== ENCOUNTER 2025-08-26 14:35 | Outpatient (AMB) | payer BC, SELFPAY ==
--- NOTE | 2025-08-26 14:36 | A.OFFVIS_ITS ---
Vital Signs 08/26/25 14:42 Height 5 ft 10 in Weight 235 lb 2 oz BMI 33.7 BP 128/86 Blood Pressure Location Rt brachial Position Standing Pulse 70 Intake Visit Reasons: CCY/RUQ abd pain Intake Note: This patient was referred by for an assessment for RUQ abdominal pain. Pt c/o; RUQ pain occasionally radiates towards back, reports no postprandial nausea or vomiting, has a good appetite. 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 He is morbidly obese and he had a liver elastography done suggesting says steatosis of the liver He also had a HIDA scan done which showed ejection fraction of 95%. He was referred to me because of the question of hyper kidneys area of the gallbladder He says that he eats a lot of fatty food. He describes occasional right upper quadrant pain although he says this is not severe . He also says he is scheduled to have an EGD with somebody. [facility] Medical History Morbid obesity Renal stones GERD (gastroesophageal reflux disease) Asthma Surgical History H/O arthroscopy of left knee Family History Father Diabetic nephropathy Mother Diabetes mellitus Hepatic encephalopathy Parkinsons disease Family/Other Substance use disorder Social History Housing: House Alcohol intake: current Alcohol intake frequency: holidays/special occasions only Alcohol type: beer Patient Tobacco Use Status: Never used Tobacco e-Cigarette/Vaping Use: Never Used Second Hand Smoke Exposure: No Substance Use Type: Marijuana service: No Current occupational status: employed Current occupational exposures/hazards: No Cognitive needs: No Hearing needs: No Vision needs: No Review of Systems Const Denies chills and Denies fever(s) Card Denies chest pain, Denies dyspnea and Denies dyspnea on exertion Resp Denies cough, Denies dyspnea and Denies dyspnea on exertion GI Denies hematochezia and Denies change in bowel habits Denies hematuria and Denies difficulty urinating Musc Denies back pain and Denies limited range of motion Neuro Denies focal weakness and Denies convulsions Psych Denies depression and Denies mood swings Physical Exam Vital Signs: Last Vital Signs Pulse 70 08/26/25 14:42 BP 128/86 08/26/25 14:42 BMI result Body Mass Index 33.7 Const Other: Appears overweight General: comfortable and no acute distress Orientation/consciousness: patient oriented x3 Neck Neck: Yes no lymphadenopathy Resp Auscultation: clear to auscultation bilaterally Cardio Rhythm: regular rhythm GI Palpation (GI): Soft to palpation, nontender and no guarding Neuro General: patient oriented x3 Assessment & Plan Assessment & Plan (1) Generalized postprandial abdominal pain: Code(s): R10.84 - Generalized abdominal pain Category: Medical Plan: He has periods monitor upper quadrant and diffuse abdominal pain. He does have note of steatosis of the liver on elastography. His HIDA scan shows an ejection fraction of 95%. This may be considered as biliary hyperkinesia. However, this diagnosis may be equivocal at this time as his symptoms are very mild. He does understand the option of proceeding with cholecystectomy. He says that he does not feel he has severe pain currently and would like to hold off on this I told him that he can come back to the office in the future if he severe symptoms He does not have any gallstones on ultrasound. I also advised him the benefits of weight loss especially in view of his steatosis. Coding Level of Care Code New Pt Level 3 (23891) Diagnoses Generalized postprandial abdominal pain R10.84
[2025-08-26 14:42] VITALS: BP 128/86; PULSE 70; BMI 33.7
== END 2025-08-26 15:01 | disposition home or self-care (01) ==
LOC: HO.HGS 14:35
PROVIDERS: PCP Internal Medicine; Visit Provider Surgery
DX: R10.84 Generalized abdominal pain (principal)
CPT/HCPCS: 99203

== ENCOUNTER 2025-09-03 09:02 | Day surgery (SDC) | payer BC, SELFPAY ==
[2025-09-01 09:52] VITALS: BMI 33.1
--- NOTE | 2025-09-01 11:40 | HO.ANESPROP2 ---
Documented by User: Kayley Main NP 09/01/25 11:41 HPI - Anesthesia Eval Consult details Narrative: 45 yr old male for upper endoscopy [facility] Active Problems Active Problems: All Active Problems Morbid obesity (Acute) Biliary dyskinesia (Acute) Generalized postprandial abdominal pain (Acute) Postprandial RUQ pain (Acute) Transaminitis (Acute) Elevated blood pressure reading without diagnosis of hypertension (Acute) Physical exam (Acute) Renal cyst (Acute) Bilateral renal stones (Acute) Obese (Acute) Shoulder fracture, right (Acute) Mild persistent asthma (Acute) Chronic GERD (Acute) B12 deficiency (Acute) Hypovitaminosis D (Acute) Microscopic hematuria (Acute) Hydronephrosis (Acute) Past Medical History Medical History Morbid obesity Renal stones GERD (gastroesophageal reflux disease) Asthma Family History Family History Father Diabetic nephropathy Mother Diabetes mellitus Hepatic encephalopathy Parkinsons disease Family/Other Substance use disorder Surgical History Surgical History (Updated 09/03/25 @ 09:14 by Rosa Chauhan RN) H/O lithotripsy H/O arthroscopy of left knee History of Problems with Anesthesia: No Social History Social History Housing: House Alcohol intake: current Alcohol intake frequency: does not drink Alcohol type: beer Patient Tobacco Use Status: Former Tobacco user e-Cigarette/Vaping Use: Never Used Second Hand Smoke Exposure: No Substance Use Type: Marijuana Are you DNR?: No Advance Directives: No Advance Directives Information Provided: Yes service: No Current occupational status: employed Current occupational exposures/hazards: No Cognitive needs: No Hearing needs: No Vision needs: No Meds Allergies Allergy/AdvReac Type Severity Reaction Status Date / Time nabumetone AdvReac Severe Headache Verified 08/26/25 14:44 Exam Height,Weight and Vital Signs: Height 5 ft 10 in Weight 104.78 kg Assessment and Plan Final Anesthetic Review History of Problems with Anesthesia: No Documented by User: Fany Rosario MD 09/03/25 09:20 PMFSH Past Medical History Medical History Morbid obesity Renal stones GERD (gastroesophageal reflux disease) Asthma Family History Family History Father Diabetic nephropathy Mother Diabetes mellitus Hepatic encephalopathy Parkinsons disease Family/Other Substance use disorder Family history of problems with anesthesia: No Surgical History Surgical History (Updated 09/03/25 @ 09:14 by Rosa Chauhan RN) H/O lithotripsy H/O arthroscopy of left knee Social History Social History Housing: House Alcohol intake: current Alcohol intake frequency: does not drink Alcohol type: beer Patient Tobacco Use Status: Former Tobacco user e-Cigarette/Vaping Use: Never Used Second Hand Smoke Exposure: No Substance Use Type: Marijuana Are you DNR?: No Advance Directives: No Advance Directives Information Provided: Yes service: No Current occupational status: employed Current occupational exposures/hazards: No Cognitive needs: No Hearing needs: No Vision needs: No Meds Allergies Allergy/AdvReac Type Severity Reaction Status Date / Time nabumetone AdvReac Severe Headache Verified 08/26/25 14:44 Exam Airway Mallampati Class: II (cap bottom laterally) TM Dist: >3cm Neck ROM: Full Heart: rrr Lungs: cta Assessment and Plan Assessment Anesthesia Assessment: Anesthesia Plan Discussed and Chart Reviewed Final Anesthetic Review Family History of Problems with Anesthesia: No NPO: Yes ASA Class: II Final Preanesthetic Review: No Changes in Pt Med Stat, Meds/Allgs Chart Reviewed and Consent Obtained/Reviewed Patient Risk: Low Procedure Risk: Intermediate Anesthetic Plan Anesthetic Plan: MAC: Disposition: Standard PACU
[2025-09-03 09:05] VITALS: BP 152/96; PULSE 66; RESP 17; TEMP 36.4; O2SAT 97; BMI 33.6
[2025-09-03] MEDS: Lactated Ringers 1,000 ML 100 ML IVCONT (09:21)
--- NOTE | 2025-09-03 09:32 | MHC.SHP ---
Pre-Procedural Eval Section A - 24 Hr Update-Section A only Date of Service: 09/03/25 The patient is an INPATIENT: No The patient has been examined within 24 hours of the surgical procedure. The History & Physical has been completed within 30 days and I have reviewed it.: Yes Section B - Complete if H&P > 30 days Chief Complaint: Right upper quadrant pain,gerd, Allergies: Allergies Allergy/AdvReac Type Severity Reaction Status Date / Time nabumetone AdvReac Severe Headache Verified 08/26/25 14:44 Plan Diagnosis/Plan: Unchanged I have reviewed the history and physical and performed a pertinent physical examination on my patient. No changes have occurred unless specified. Time Spent With Patient Time: Total time managing care of this patient today ____ minutes.
--- NOTE | 2025-09-03 10:25 | P.OP_ITS ---
Operative Note Operative Note Date of Service: 09/03/25 Narrative: Procedure: Esophagogastroduodenoscopy Endoscopist: Shauna Sullivan MD Indication: Abd pain Anesthesia Provider: Светлана Diallo CRNA Anesthesia Type: MAC ?? EGD Procedure:?? The procedure, indications, preparation and potential complications were reviewed with the patient, who indicated understanding and gave written informed consent to proceed. A physical exam was performed. The endoscope was introduced through the mouth, and advanced to the second part of duodenum. The mucosa was carefully examined on slow withdrawal of the endoscope. The patient tolerated the procedure well. There were no immediate complications.? ? EGD Findings:? * Esophagus:? Focal patch of heterotopic gastric mucosa was noted in the upper esophagus consistent with inlet patch. Erosions < 5mm and erythema at GE junction. The Z line was at 37 cm displaced by a hiatal hernia with the hiatus at 41 cm. Cold forceps biopsies were taken from the GE junction. * Stomach:? Erythema and scant heme noted in the body and antrum of the stomach. Retroflexion was performed the cardia that showed Hill grade II hiatal hernia. Cold forceps biopsies were taken from the gastric body and antrum for histology. * Duodenum:? Normal mucosa was noted in the whole of the examined duodenum. Cold forceps biopsies were taken from duodenal bulb and second portion of the duodenum to rule out celiac sprue. ? EGD Impressions:? * Inlet patch * Grade A esophagitis (biopsy) * Hiatal hernia * Gastritis (biopsy) * Normal duodenum (biopsy) ?? Recommendations:?? * Follow biopsy results. Our office will call or send a letter with results within 7-10 days. * Start omeprazole 40 mg once daily x 8-12 weeks and then decrease to 20 mg daily. * If H pylori +, patient will be prescribed eradication therapy followed by test of cure. * Avoid NSAIDs and smoking. * A barium swallow will be ordered as outpatient for evaluation of hiatal hernia Above has been reviewed with the patient.
[2025-09-03 10:29] VITALS: BP 149/73; PULSE 89; RESP 18; TEMP 36.7; O2SAT 95
[2025-09-03 10:39] VITALS: BP 121/80; PULSE 71; RESP 18; O2SAT 94
[2025-09-03 10:50] VITALS: BP 134/89; PULSE 70; RESP 18; TEMP 36.6; O2SAT 96
== END 2025-09-03 11:36 | disposition home or self-care (01) ==
PROVIDERS: PCP Internal Medicine; Visit Provider Internal Medicine
PROC: 0DJ08ZZ Inspection of Upper Intestinal Tract, Via Natural or Artificial Opening Endoscopic (ICD-10-PCS; CPT 43235; principal; 2025-09-03 11:00)
DX: R10.11 Right upper quadrant pain (principal); K21.9 Gastro-esophageal reflux disease without esophagitis; K29.50 Unspecified chronic gastritis without bleeding; K20.80 Other esophagitis without bleeding; Q39.8 Other congenital malformations of esophagus; K44.9 Diaphragmatic hernia without obstruction or gangrene; K82.8 Other specified diseases of gallbladder; J45.909 Unspecified asthma, uncomplicated; R74.01 Elevation of levels of liver transaminase levels; E66.9 Obesity, unspecified; Z68.33 Body mass index [BMI] 33.0-33.9, adult; Z87.442 Personal history of urinary calculi; Z88.8 Allergy status to other drugs, medicaments and biological substances; Z98.890 Other specified postprocedural states
CPT/HCPCS: 43239; 88305; 88313; 88342; J2003; J2704

== ENCOUNTER → 2025-09-03 09:02 | Outpatient (BNV) | payer BC, SELFPAY | PROVIDERS: PCP Internal Medicine; Visit Provider Internal Medicine | DX: R10.11 Right upper quadrant pain (principal); K20.90 Esophagitis, unspecified without bleeding; K29.00 Acute gastritis without bleeding; K22.89 Other specified disease of esophagus | CPT/HCPCS: 43239 ==

== ENCOUNTER 2025-10-14 12:44 | Outpatient (AMB) | payer BC, SELFPAY ==
[2025-10-14 13:04] VITALS: BP 112/67; PULSE 72; BMI 34.0
--- NOTE | 2025-10-14 13:04 | A.OFFVIS_ITS ---
Vital Signs 10/14/25 13:04 Height 5 ft 10 in Weight 237 lb 3.478 oz BMI 34.0 BP 112/67 Blood Pressure Location Lt brachial Position Sitting Pulse 72 Intake Visit Reasons: s/p EGD Intake Note: Patient in office today s/p EGD. CC: Pt states that he is doing well and denies having any GI symptoms or concerns. 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 Noted to have abnormal LFTs intermittently since 2022. Pt himself reports intermittent right sided abd pain david after eating fatty/greasy food. No N/V. No pruritus, joint pains, fatigue. Prev used to drink heavily almost 8 years ago. Now has 2-3 beers per weekend. Smokes marijuana. Mother had chronic hepatitis. Pt's chronic hep panel is negative. US with elastography reviewed no advanced fibrosis. HIDA scan 06/15/25: There is normal uptake and excretion of the radiopharmaceutical by the liver. Gallbladder activity is noted at 10 minutes. Common bile duct activity is seen at 26 minutes. Small bowel activity is noted at 30 minutes. After the administration of intravenous CCK, the estimated gallbladder ejection fraction is 95%, 07/27/25: here for follow up. Reports continued post prandial abd pain on both right and left side. david after greasy food. Occ has heart burn as well. No dysphagia noted. No regurgitation. No fam hx of esophageal or stomach ca. No BM changes. In terms of LFTs, reviewed that labs consistent with metALD, remaining chronic liver work up was negative. 09/03/25: * Inlet patch * Grade A esophagitis (biopsy) * Hiatal hernia * Gastritis (biopsy) * Normal duodenum (biopsy) A. Duodenum, biopsy: Duodenal mucosa within normal limits. B. Stomach, antrum, biopsy: Antral-type mucosa with mild chronic inactive inflammation; no Helicobacter organisms seen. C. Stomach, body, biopsy: Oxyntic mucosa with mild chronic inactive inflammation; no Helicobacter organisms seen. D. EG junction, biopsy: - Cardiofundic-type mucosa with mild chronic inactive inflammation; no intestinal metaplasia seen. - Squamous epithelium within normal limits 10/14/25: [facility] Medical History (Updated 09/03/25 @ 10:24 by Shauna Sullivan MD) Morbid obesity Renal stones GERD (gastroesophageal reflux disease) Asthma Surgical History (Updated 09/03/25 @ 09:14 by Rosa Chauhan, JEFF) H/O lithotripsy H/O arthroscopy of left knee Family History Father Diabetic nephropathy Mother Diabetes mellitus Hepatic encephalopathy Parkinsons disease Family/Other Substance use disorder Social History Housing: House Alcohol intake: current Alcohol intake frequency: does not drink Alcohol type: beer Patient Tobacco Use Status: Former Tobacco user e-Cigarette/Vaping Use: Never Used Second Hand Smoke Exposure: No Substance Use Type: Marijuana service: No Current occupational status: employed Current occupational exposures/hazards: No Cognitive needs: No Hearing needs: No Vision needs: No Physical Exam Vital Signs: Last Vital Signs Pulse 72 10/14/25 13:04 BP 112/67 10/14/25 13:04 BMI result Body Mass Index 34.0 Immunizations Engerix-B (PF) 20 mcg/mL intramuscular suspension Performing Provider: Shauna Sullivan MD [place] [facility] [place] [facility] Administered by: Princess Beal RN on 10/14/25 14:00 Dose Route Admin Location Dispensed Lot Number Expiration Date 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 Panel Today R74.01 - Elevation of levels of liver transaminase levels Prothrombin Time INR Today R74.01 - Elevation of levels of liver transaminase levels Hepatitis B Adult Immunization Today Z23 - Encounter for immunization Complete Blood Count no Diff Today R74.01 - Elevation of levels of liver transaminase levels Lipid Panel Today R74.01 - Elevation of levels of liver transaminase levels Hemoglobin A1c Today R74.01 - Elevation of levels of liver transaminase levels Medications: New omeprazole 20 mg PO DAILY 90 caps 1RF Discontinued omeprazole Discontinued Reason: Patient Completed Course 40 mg PO DAILY 90 days 90 caps 0RF K20.90 - Esophagitis, unspecified without bleeding, K29.70 - G astritis, unspecified, without bleeding Patient Instructions: - After you finish your current prescription for omeprazole 40 mg, you will star t taking omeprazole 20 mg. A prescription for the new dose has been sent to your pharmacy. - When you switch to the lower dose, you may notice more heartburn for the first week, but this should get better. If it does not, please call our office. - Please go to the lab to get your blood drawn. This will check your liver function, cholesterol, and for diabetes. - We will send you a letter with results - It is important to continue to not drink any alcohol to help your liver heal. - It is very important that you talk to your primary care doctor about getting a sleep study to check for sleep apnea. - You will need to have a screening colonoscopy when you turn 47 years old. - First shot of hepatitis B vaccine is being given today. Some soreness in that arm is expected. You can apply ice pack and take tylenol 650 mg three times a day for a few days. Coding Diagnoses Transaminitis R74.01
== END 2025-10-14 13:29 | disposition home or self-care (01) ==
LOC: HO.HGI 12:45
PROVIDERS: PCP Internal Medicine; Visit Provider Internal Medicine
DX: Z23 Encounter for immunization (principal)

== ENCOUNTER 2025-10-14 12:44 | Outpatient (REF) | payer BC, SELFPAY ==
[2025-10-14 14:33] LABS: Hematocrit 43.5 % (42.0-52.0); Hemoglobin 14.6 g/dl (14.0-18.0); Mean Corpuscular HGB Conc 33.6 g/dl (31.0-36.0); Mean Corpuscular Hemoglobin 29.1 pg (27.0-33.0); Mean Corpuscular Volume 86.8 fL (80.0-98.0); NRBC Abs Auto 0.000 X10*3/uL (0.0-0.012); NRBC Pct Auto 0.0 /100WBC (0.0-0.2); Platelet Count 190 X10*3/uL (160-400); Red Blood Count 5.01 X10*6/uL (4.60-5.80); White Blood Count 6.9 X10*3/uL (4.8-10.8)
[2025-10-14 14:41] LABS: INTERNATIONAL NORM RATIO 1.0 (0.9-1.1); Prothrombin Time 12.4 SEC (11.2-13.5)
[2025-10-14 15:14] LABS: Alanine Aminotransferase 75 U/L (0-40); Albumin Level 4.7 g/dL (3.5-5.0); Alkaline Phosphatase 84 U/L (39-117); Anion Gap 10 (12-20); Aspartate Amino Transferase 65 U/L (5-37); Blood Urea Nitrogen 18 mg/dL (9-16); Calcium 9.2 mg/dL (8.4-10.2); Carbon Dioxide 26 mmol/L (22-29); Chloride 109 mmol/L (96-108); Cholesterol 161 mg/dL (<200); Estimated Glomerular Filt Rate > 60; HDL Cholesterol 34 mg/dL (>40); Potassium 4.0 mmol/L (3.3-5.1); Sodium 141 mmol/L (135-145); Total Protein 7.7 g/dL (6.5-8.0); Triglycerides 106 mg/dL (<150)
== END 2025-10-14 12:45 | disposition home or self-care (01) ==
LOC: HO.LAB 12:44
PROVIDERS: PCP Internal Medicine; Visit Provider Internal Medicine
DX: R74.01 Elevation of levels of liver transaminase levels (principal); K20.90 Esophagitis, unspecified without bleeding; K29.70 Gastritis, unspecified, without bleeding; Z23 Encounter for immunization; Z13.1 Encounter for screening for diabetes mellitus; Z51.81 Encounter for therapeutic drug level monitoring
CPT/HCPCS: 36415; 80053; 80061; 83036; 85027; 85610; 90471; 90746

== ENCOUNTER 2025-11-13 12:54 | Outpatient (AMB) | payer BC, SELFPAY ==
--- NOTE | 2025-11-13 13:09 | AM.OFFVISNUR ---
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 Allergies nabumetone Adverse Reaction (Severe, Verified 11/13/25 13:09) Headache Immunizations Engerix-B (PF) 20 mcg/mL intramuscular suspension Performing Provider: Shauna Sullivan MD Performing Location: [facility] [place] [facility] Administered by: Princess Beal RN on 11/13/25 13:09 Dose Route Admin Location Dispensed Lot Number Expiration Date [facility] [employer] 1 mL IM Right Deltoid 1 mL [id number] 12/04/27 42106-845-07 [employer] Total Dispensed Waste 1 mL 0 % VIS Given Date VIS Provided VIS Publication Date 11/13/25 Single Vaccine 23 Eligibility Eligibility Date Funding Source Not [facility] Eligible 11/13/25 Private Assessment & Plan Assessment & Plan (1) Immunization due: Code(s): Z23 - Encounter for immunization Orders: Orders Hepatitis B Adult Immunization Today Z23 - Encounter for immunization Coding Level of Care Code Established Pt Est Pt Level 1 (32244) Patient Type Established Diagnoses Immunization due Z23 Comment Nurse Visit
== END 2025-11-13 13:08 | disposition home or self-care (01) ==
LOC: HO.HGI 12:55
PROVIDERS: PCP Internal Medicine; Visit Provider Internal Medicine
DX: Z23 Encounter for immunization (principal)
CPT/HCPCS: 99499

== ENCOUNTER → 2025-11-13 12:54 | Outpatient (BNVA) | payer BC, SELFPAY | PROVIDERS: PCP Internal Medicine; Visit Provider Internal Medicine | DX: Z23 Encounter for immunization (principal) | CPT/HCPCS: 90471; 90746 ==